=== PATIENT | female | born 1950 | race American Indian/Alaskan Native ===

== ENCOUNTER 2024-10-01 15:11 | Outpatient (RCR) | payer MEDICARE, MEDICAID, SELFPAY ==
--- NOTE | 2024-10-13 20:41 | CTCFLWUP_ITS ---
Patient: MARY ELLEN HARRIS : 1950 Page 2 of 2 FOLLOW UP NOTE DATE OF SERVICE: 10/01/2024 NAME: MARY ELLEN HARRIS ACCOUNT: [id number] : 1950 AGE: 74 REASON FOR VISIT: Follow-up on leiomyosarcoma INTERVAL HISTORY: Patient is 74-year-old woman on peritoneal dialysis for her renal failure. Patient was having abdomi nal discomfort in February 2024 and had ultrasound initially which was negative. Patient had a CT scan do ne and was found to have abdominal mass. Pathology of the abdominal mass reviewed showed leiomyosarc jose with the tumor cells positive for desmin and smooth muscle actin but negative for ER/WI?100. The mass measured 12.6 x 16.7 x 17.8 cm. Weekly hypermetabolic soft tissue mass in the upper anterior a bdomen also non-hypermetabolic 18 mm pulmonary nodules in the right upper lobe. Patient has abdomina l pain for which she takes half a tablet of tramadol as needed. 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 acetaminophen - 325 mg 1 tab Daily 2. furosemide - 20 mg 1 tab Daily 3. insulin aspart U-100 - 100 unit/mL 5 Units Twice a Day 4. insulin glargine - 100 unit/mL 10 Units As directed 5. lisinopril - 20 mg Twice a Day 6. metoprolol succinate - 100 mg Daily 7. pantoprazole - 20 mg Daily 8. Renal-Lauro - 0.8 mg 1 tab Daily 9. simvastatin - 20 mg Daily 10. sodium bicarbonate - 10 mg Twice a Day 11. traMADol - 50 mg 1 tab As directed?[facility] Meds? Medications Last Reconciled by Lin Pemberton MA on 10/01/2024 ALLERGIES: CODEINE PHOSPHATE REVIEW OF SYSTEMS: A complete 14-point review of systems was performed and is negative except as noted in interval histo ry. PHYSICAL EXAMINATION: VITAL SIGNS: Temperature?98.9, B/P?108/74, Oxygen?Saturation?96% PAIN: 2 - Mild pain ECOG Performance Status: 0 - Asymptomatic and fully active GENERAL APPEARANCE: Appears well, in no apparent distress, appropriately interactive. HEENT: Normocephalic, no temporal wasting, normal conjunctiva, no scleral icterus, normal hearing, li ps without lesions, neck normal range of motion. CARDIOVASCULAR: Not assessed. PULMONARY: Normal respiratory effort, no respiratory distress or use of accessory muscles, speaking i n full sentences, no tachypnea. EXTREMITIES: No pedal edema or cyanosis. SKIN: Normal skin appearance. NEUROLOGIC: Alert and ORIENTED x4. PSHYCHIATRIC: Appropriate affect, mood normal, behavior normal, intact thought and speech. Abdominal examination revealed slightly decreased size mass and is little softer than the last examin ation nontender LABORATORY DATA: I have personally reviewed and interpreted each of the patient?s relevant lab tests, abnormal finding s are below: Date 09/04/24 ??WHITE?BLOOD?COUNT?(Thou/mm3) 7.9 ??RED?BLOOD?COUNT?(Miln/mm3) 3.73?L ??HEMOGLOBIN?(gm/dl) 12.1 ??HEMATOCRIT?(%) 37.2 ??PLATELET?COUNT?(Thou/mm3) 414 ??NEUTROPHILS?%,?AUTO?(%) 73 ??LYMPH?%,?AUTO?(%) 17 ??NEUTROPHILS,?AUTO?(Thou/mm3) 5.8 IMPRESSION/PLAN: Locally advanced leiomyosarcoma of abdominal cavity Patient was seen at [facility] and recommended to start lurbinectedin with a 20% dose reduction with a dose of 1.2 mg/m? as adjuvant therapy Unfortunately we were not able to help Ms. Harris by giving chemotherapy as we did not had resour radhames Patient received echocardiogram here and had a good ejection fraction Patient so far has received 2 cycles of chemotherapy and doing very well Patient completed her labs CBC CMP reviewed and is good Patient will continue chemotherapy at [facility] and follow-up with me as needed basis Patient's symptoms have improved since starting chemotherapy and mass is also decreased CBC CMP uric acid Patient may be doing the labs at [facility] and we can follow the same Get records RETURN TO CLINIC: I will see her back in the clinic in 2 months. With imaging BILLING AND COMPLIANCE: I reviewed external records from providers outside my specialty as summarized above. I spent a total of 50 minutes on this patient?s care on the day of their visit excluding time spent related to any bi lled procedures. This time includes time spent with the patient as well as time spent documenting in the medical record, reviewing patients records and tests, obtaining history, placing orders, communi cating with other healthcare professionals, counseling the patient, family or caregiver, and/or care coordination for the diagnoses above. Electronically Signed by: Alfred Prince MD T: 8:38 PM CC: PCP: Bernardino Alas Referring: Bernardino Alas This document was completed utilizing speech recognition software. Grammatical errors, random word in sertions, pronoun errors, and incomplete sentences are an occasional consequence of this system due t o software limitations, ambient noise, and hardware issues. Any formal questions or concerns about e content, text or information contained within the body of this dictation should be directly address ed to the provider for clarification.
== END 2024-10-29 23:59 | disposition home or self-care (01) ==
LOC: SCTC 15:11
PROVIDERS: PCP Physician Assistant; Referring Provider Physician Assistant; Visit Provider Internal Medicine Hematology & Oncology
DX: C49.4 Malignant neoplasm of connective and soft tissue of abdomen (principal); R91.1 Solitary pulmonary nodule
CPT/HCPCS: 99212; G0463

== ENCOUNTER 2025-01-08 15:41 | Outpatient (RCR) | payer MEDICARE, MEDICAID, SELFPAY | END 2025-01-27 23:59 | disposition home or self-care (01) | LOC: SCTC 15:41 | PROVIDERS: PCP Physician Assistant; Referring Provider Physician Assistant; Visit Provider Internal Medicine Hematology & Oncology | DX: C49.4 Malignant neoplasm of connective and soft tissue of abdomen (principal) | CPT/HCPCS: 99212; G0463 ==

== ENCOUNTER → 2025-03-13 | Outpatient (CLI) | payer MEDICARE, MEDICAID, SELFPAY ==
--- NOTE | 2025-03-13 14:30 | ECHO_ITS ---
Transthoracic Echo Report Ht (in): 61 Wt (lb): 165 Exam Location: Echo Lab Status: Preadmit Editing Internship: DIA Franklin^^^^ Indications: Procedure Performed: BP: / HR: Technical Quality: Fair MEASUREMENTS (Male / Female) Normal Values 2D ECHO LV Diastolic Diameter PLAX 3.8 cm 4.2 - 5.9 / 3.9 - 5.3 cm LV Systolic Diameter PLAX 2.3 cm IVS Diastolic Thickness 1.0 cm 0.6 - 1.0 / 0.6 - 0.9 cm LVPW Diastolic Thickness 1.0 cm 0.6 - 1.0 / 0.6 - 0.9 cm LV Relative Wall Thickness 0.5 LVOT Diameter 1.7 cm Aortic Root Diameter 2.8 cm LA Systolic Diameter LX 3.4 cm 3.0 - 4.0 / 2.7 - 3.8 cm LA Volume Index 25.2 cm?/m? 16 - 28 cm?/m? DOPPLER AV Peak Velocity 142.5 cm/s AV Peak Gradient 8.1 mmHg AV Mean Gradient 4.0 mmHg AV Velocity Time Integral 28.2 cm LVOT Peak Velocity 98.3 cm/s LVOT Peak Gradient 3.9 mmHg LVOT Velocity Time Integral 18.1 cm AV Area Cont Eq vti 1.5 cm? AV Area Cont Eq pk 1.6 cm? MV Area PHT 3.7 cm? Mitral E Point Velocity 68.0 cm/s Mitral A Point Velocity 100.0 cm/s Mitral E to A Ratio 0.7 LV E' Lateral Velocity 10.5 cm/s Mitral E to LV E' Lateral Ratio 6.5 LV E' Septal Velocity 11.2 cm/s Mitral E to LV E' Septal Ratio 6.1 TR Peak Velocity 266.0 cm/s TR Peak Gradient 28.3 mmHg PV Peak Velocity 112.0 cm/s PV Peak Gradient 5.0 mmHg RVOT Peak Velocity 44.3 cm/s FINDINGS Left Ventricle Normal left ventricular size, wall thickness, systolic function with no obvious regional wall motion abnormalities. There is grade I diastolic dysfunction of the left ventricle (impaired relaxation pattern). The left ventricular ejection fraction is normal, estimated at 60-65%. Right Ventricle The right ventricle is normal in size and systolic function. The estimated right ventricular systolic pressure, 40 mmHg. Left Atrium The left atrium is normal by two-dimensional, color flow and Doppler imaging with no structural abnormalities, no thrombus formation present. Right Atrium The right atrium is normal by two-dimensional imaging, color flow and Doppler imaging with no structural abnormalities, no thrombus formation present. Atrial Septum The interatrial septum appears normal with no evidence of a shunt. Aorta The aorta is normal by two-dimensional, color flow and Doppler interrogation. Mitral Valve Mild thickening of the mitral valve leaflets. Mild mitral regurgitation. Mild mitral annular calcification. Aortic Valve Aortic valve sclerosis. Mild thickening of the aortic valve leaflets. Diffuse calcification of the aortic valve. Tricuspid Valve There is mild tricuspid valve regurgitation. Pulmonic Valve Trivial pulmonic valve regurgitation. Vessels The pulmonary artery appears normal. The inferior vena cava pulmonary and hepatic veins appear normal. Pericardium The pericardium is normal by two-dimensional imaging. There is no significant pericardial effusion. CONCLUSIONS indication: [facility] The transthoracic study is normal by two-dimensional, color flow imaging and Doppler interrogation. Normal left ventricular size and function. Approximate ejection fraction is 65%. RV appears normal with RVSP 40 mmHg. AOV sclerosis no stenosis Trace mitral and trace tricuspid regurgitation Sherrie Alfaro (Electronically Signed) Final Date: 14 Mar 2025 18:49
== END | disposition home or self-care (01) ==
PROVIDERS: PCP Physician Assistant; Referring Provider Internal Medicine Hematology & Oncology; Visit Provider Internal Medicine Hematology & Oncology
DX: I08.1 Rheumatic disorders of both mitral and tricuspid valves (principal); C49.9 Malignant neoplasm of connective and soft tissue, unspecified
CPT/HCPCS: 93306

== ENCOUNTER 2025-05-29 07:54 | Outpatient (RCR) | payer MEDICARE, MEDICAID, SELFPAY ==
[2025-05-19 08:57] LABS: Basophils # (Auto) 0.0 Thou/mm3 (0.0-0.2); Basophils % (Auto) 1 % (0-2.5); Eosinophils # (Auto) 0.1 Thou/mm3 (0.0-0.5); Eosinophils % (Auto) 2 % (0-10); Hematocrit 33.4 % (36.0-46.0); Hemoglobin 11.5 g/dL (12.0-16.0); Immature Granulocytes Auto 0.02 Thou/mm3 (0.00-0.00); Lymphocytes # (Auto) 1.1 Thou/mm3 (1.0-4.8); Lymphocytes % (Auto) 18 % (10-50); Mean Corpuscular HGB Conc 34.4 g/dl (31.0-37.0); Mean Corpuscular Hemoglobin 35.1 pg (25.0-35.0); Mean Corpuscular Volume 102 fL (80-100); Monocytes # (Auto) 0.5 Thou/mm3 (0.0-0.8); Monocytes % (Auto) 8 % (0-12); Neutrophils # (Auto) 4.1 Thou/mm3 (1.8-7.7); Neutrophils % (Auto) 70 % (37-80); Nucleated Red Blood Cell # 0.00 Thou/mm3 (0.00-0.00); Nucleated Red Blood Cell % 0 /100 WBC (0); Platelet Count 302 Thou/mm3 (140-440); RDW Standard Deviation 49.4 fL (36.4-46.3); Red Blood Count 3.28 Miln/mm3 (4.00-5.20); White Blood Count 5.8 Thou/mm3 (3.6-11.0)
[2025-05-19 09:13] LABS: Alanine Aminotransferase 17 U/L (10-49); Albumin, Serum 3.1 gm/dL (3.4-4.8); Albumin/Globulin Ratio 1.6 (1.2-2.2); Alkaline Phosphatase 88 U/L (46-116); Anion Gap 8 (7-16); Aspartate Amino Transferase 21 U/L (0-34); BUN/Creatinine Ratio 8 Ratio (12-20); Bilirubin,Total 0.2 mg/dL (0.3-1.2); Blood Urea Nitrogen 34 mg/dL (9-23); Calcium 9.4 mg/dL (8.3-10.6); Calcium (Corrected) 10.1 mg/dL (8.5-10.1); Carbon Dioxide 24.7 mMol/L (20.0-31.0); Chloride 101 mMol/L (98-107); Creatinine (Component) 4.4 mg/dL (0.6-1.3); Globulin 1.9 gm/dL (2.3-3.5); Glucose 130 mg/dL (74-106); Osmolality,Calculated 277 (275-295); Potassium 4.8 mMol/L (3.4-5.1); Sodium 134 mMol/L (136-145); Total Protein 5.0 gm/dL (5.7-8.2); eGFR 10 See Note
--- NOTE | 2025-05-25 19:31 | CTCFLWUP_ITS ---
Patient: AYLIN HARRIS : 1950 Page 3 of 4 FOLLOW UP NOTE DATE OF SERVICE: 05/19/2025 NAME: AYLIN HARRIS ACCOUNT: [id number] : 1950 AGE: 74 INTERVAL HISTORY: Aylin is a patient with sarcoma who presents for follow-up of her ongoing immunotherapy treatment. She reports experiencing pain, which has been increasing in severity. The pain is localized to her right side and becomes particularly intense when it occurs. Aylin describes the pain as strong and intermittent, stating When it comes, it comes strong. The pain appears to be associated with movement, as she experiences less discomfort when she remains still. Aylin has been taking tramadol for pain management but only uses it when it really, really hurts rather than on a regular schedule. She also reports feeling more tired than usual. Additionally, she mentions experiencing fullness and pain after eating, specifically noting discomfort after consuming a bun. Regarding her cancer treatment, Aylin is currently on a single immunotherapy drug. Her oncologist notes that while the cancer is not growing, it is also not decreasing in size. Aylin expresses some confusion about the effectiveness of her current treatment, mentioning that she was previously told the drug was not responding, but her doctor indicated that the lack of growth suggests some efficacy. Medical History - Sarcoma (ongoing) - Iron deficiency anemia (suspected) Medications and Supplements - Immunotherapy - Single drug regimen - Tramadol 100 mg - Extended release - Taken only when pain is severe - Avelumab - Every 3 weeks or 6 weeks - Half dose Social History - Substance Use: Patient uses cannabis oil for pain management (topical application) - Pain Management: Takes tramadol only when pain is severe; advised to take it regularly - Diet: Sometimes feels full and experiences pain after eating Review of Systems General: Positive for pain, fatigue. Gastrointestinal: Positive for early satiety, pain after eating. Musculoskeletal: Positive for pain associated with movement. ONCOLOGY HISTORY:?[facility] Hx? 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 Patient was having abdominal discomfort in February 2024 and had ultrasound initially which was negative. Patient had a CT scan done and was found to have abdominal mass. Pathology of the abdominal mass reviewed showed leiomyosarcoma with the tumor cells positive for desmin and smooth muscle actin but negative for ER/IN?100. The mass measured 12.6 x 16.7 x 17.8 cm. Weekly hypermetabolic soft tissue mass in the upper anterior abdomen also non-hypermetabolic 18 mm pulmonary nodules in the right upper lobe. Patient has abdominal pain for which she takes half a tablet of tramadol as needed. 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 acetaminophen - 325 mg 1 tab Daily 2. furosemide - 20 mg 1 tab Daily 3. insulin aspart U-100 - 100 unit/mL 5 Units Twice a Day 4. insulin glargine - 100 unit/mL 10 Units As directed 5. lisinopril - 20 mg Twice a Day 6. metoprolol succinate - 100 mg Daily 7. pantoprazole - 20 mg Daily 8. Renal-Lauro - 0.8 mg 1 tab Daily 9. simvastatin - 20 mg Daily 10. sodium bicarbonate - 10 mg Twice a Day 11. traMADol - 100 mg 1 tab As needed?[facility] Meds? Medications Last Reconciled by Madelin Amanda MA on 05/19/2025 ALLERGIES: CODEINE PHOSPHATE REVIEW OF SYSTEMS: A complete 14-point review of systems was performed and is negative except as noted in interval history. PHYSICAL EXAMINATION: VITAL SIGNS: Temperature?99, B/P?145/69, Oxygen?Saturation?99% Weight?170.2?lbs PAIN: 7 - Between severe and very severe pain ECOG Performance Status: 0 - Asymptomatic and fully active GENERAL APPEARANCE: Appears well, in no apparent distress, appropriately interactive. HEENT: Normocephalic, no temporal wasting, normal conjunctiva, no scleral icterus, normal hearing, lips without lesions, neck normal range of motion. CARDIOVASCULAR: Not assessed. PULMONARY: Normal respiratory effort, no respiratory distress or use of accessory muscles, speaking in full sentences, no tachypnea. EXTREMITIES: No pedal edema or cyanosis. SKIN: Normal skin appearance. NEUROLOGIC: Alert and oriented x4. PSHYCHIATRIC: Appropriate affect, mood normal, behavior normal, intact thought and speech. LABORATORY DATA: I have personally reviewed and interpreted each of the patient?s relevant lab tests, abnormal findings are below: Date 09/04/24 05/19/25 ??WHITE?BLOOD?COUNT?(Thou/mm3) 7.9 5.8 ??RED?BLOOD?COUNT?(Miln/mm3) 3.73?L 3.28?L ??HEMOGLOBIN?(gm/dl) 12.1 11.5?L ??HEMATOCRIT?(%) 37.2 33.4?L ??PLATELET?COUNT?(Thou/mm3) 414 302 ??NEUTROPHILS?%,?AUTO?(%) 73 70 ??LYMPH?%,?AUTO?(%) 17 18 ??NEUTROPHILS,?AUTO?(Thou/mm3) 5.8 4.1 ??GLUCOSE,RANDOM?(mg/dL) ? 130?H ??BLOOD?UREA?NITROGEN?(mg/dL) 36?H 34?H ??CREATININE?(mg/dL) ? 4.40?HH ??SODIUM?(mmol/L) ? 134?L ??POTASSIUM?(mmol/L) ? 4.8 ??CHLORIDE?(mmol/L) ? 101 ??CrCl?(CandG)?(ml/min) ? 11.28 ??AST/SGOT?(Unit/L) ? 21 ??ALT/SGPT?(Unit/L) ? 17 ??ALKALINE?PHOSPHATASE?(Unit/L) ? 88 ??BILIRUBIN,?TOTAL?(mg/dL) ? 0.2?L ??PROTEIN?TOTAL?(gm/dl) ? 5.0?L ??ALBUMIN,?SERUM?(gm/dl) ? 3.1?L ??GLOBULIN?(gm/dl) ? 1.9?L ??ALBUMIN/GLOBULIN?RATIO ? 1.6 ??CALCIUM,?SERUM?(mg/dL) ? 9.4 ??CALCIUM?SERUM?(CORRECTED)?(mg/dL) ? 10.1 ASSESSMENT/PLAN:?Wily Prince Assessment/Plan? Locally advanced leiomyosarcoma of abdominal cavity Patient was seen at [facility] and recommended to start lurbinectedin with a 20% dose reduction with a dose of 1.2 mg/m? as adjuvant therapy. Sarcoma progressed and received radiation and now on avelumab Aylin, a patient with sarcoma, presents with worsening pain and fatigue. She is currently on immunotherapy and experiencing stable disease. Sarcoma Assessment: Patient is currently on immunotherapy (avelumab) for sarcoma. The disease is not growing but also not decreasing in size, indicating stable disease. However, the patient is experiencing worsening pain, which may suggest disease progression. The pain is associated with movement and is particularly strong in a specific area (patient indicated right here ). The patient has been inconsistently taking tramadol for pain management. Plan: - Continue avelumab immunotherapy every 2 weeks at standard dose - Adjust treatment schedule: - Initially, follow-up visits every 4 weeks - CT scans every 3 months - Optimize pain management: - Start tramadol 50 mg extended-release twice daily, regardless of pain level - If ineffective after 4 weeks, consider switching to narco 100 mg once or twice daily - Refer to Dr. Lozano (palliative care and radiation oncologist) for pain management - Recommend cannabis oil for topical application to painful area - Order laboratory tests: - B12 level - Iron studies - Complete blood count (to assess for anemia) - Encourage increased fluid intake before treatments - Continue follow-up with [facility] for sarcoma management and potential clinical trials - Schedule treatment education session Nutritional Deficiency Assessment: Patient appears pale compared to the last visit, suggesting possible anemia. There are concerns about nutritional deficiencies due to cancer-related factors such as pain, discomfort, and decreased appetite. The patient reports feeling full and experiencing pain after eating. Plan: - Order laboratory tests: - Iron studies - B12 level - Educate patient on the importance of consistent nutrition despite discomfort - Encourage small, frequent meals if fullness is an issueORDERS: Order # Description [id number] CBC + Comprehensive Metabolic Panel [id number] Lab Appointment [id number] CBC + Comprehensive Metabolic Panel [id number] Lab Appointment [id number] CBC + Comprehensive Metabolic Panel [id number] Lab Appointment [id number] CBC + Comprehensive Metabolic Panel [id number] Lab Appointment [id number] CBC + Comprehensive Metabolic Panel [id number] Lab Appointment [id number] CBC + Comprehensive Metabolic Panel [id number] Lab Appointment [id number] CBC + Comprehensive Metabolic Panel [id number] Lab Appointment [id number] CBC + Comprehensive Metabolic Panel [id number] Lab Appointment [id number] CBC + Comprehensive Metabolic Panel [id number] Lab Appointment [id number] CBC + Comprehensive Metabolic Panel [id number] Lab Appointment RETURN TO CLINIC: I reviewed the diagnosis, prognosis, and recommended treatment/procedure options with the patient (and/or their legal leasing representative), including the potential benefits, risks, side effects and alternative therapies. We also discussed the option of no treatment and the possibility of clinical trial participation, if applicable. All questions were addressed, and they demonstrated understanding. They provided informed consent to proceed with the proposed plan of care. BILLING AND COMPLIANCE: I reviewed external records from providers outside my specialty as summarized above. I spent a total of 50 minutes on this patient?s care on the day of their visit excluding time spent related to any billed procedures. This time includes time spent with the patient as well as time spent documenting in the medical record, reviewing patients records and tests, obtaining history, placing orders, communicating with other healthcare professionals, counseling the patient, family or caregiver, and/or care coordination for the diagnoses above. Electronically Signed by: Alfred Prince MD T: 7:29 PM CC: PCP: Bernardino Alas Referring: Alfred Prince This document was completed utilizing speech recognition software. Grammatical errors, random word insertions, pronoun errors, and incomplete sentences are an occasional consequence of this system due to software limitations, ambient noise, and hardware issues. Any formal questions or concerns about the content, text or information contained within the body of this dictation should be directly addressed to the provider for clarification.
[2025-05-28 13:07] LABS: Basophils # (Auto) 0.0 Thou/mm3 (0.0-0.2); Basophils % (Auto) 1 % (0-2.5); Eosinophils # (Auto) 0.1 Thou/mm3 (0.0-0.5); Eosinophils % (Auto) 2 % (0-10); Hematocrit 34.9 % (36.0-46.0); Hemoglobin 11.5 g/dL (12.0-16.0); Immature Granulocytes Auto 0.03 Thou/mm3 (0.00-0.00); Lymphocytes # (Auto) 0.9 Thou/mm3 (1.0-4.8); Lymphocytes % (Auto) 14 % (10-50); Mean Corpuscular HGB Conc 33.0 g/dl (31.0-37.0); Mean Corpuscular Hemoglobin 34.4 pg (25.0-35.0); Mean Corpuscular Volume 105 fL (80-100); Monocytes # (Auto) 0.6 Thou/mm3 (0.0-0.8); Monocytes % (Auto) 9 % (0-12); Neutrophils # (Auto) 5.1 Thou/mm3 (1.8-7.7); Neutrophils % (Auto) 75 % (37-80); Nucleated Red Blood Cell # 0.00 Thou/mm3 (0.00-0.00); Nucleated Red Blood Cell % 0 /100 WBC (0); Platelet Count 265 Thou/mm3 (140-440); RDW Standard Deviation 49.0 fL (36.4-46.3); Red Blood Count 3.34 Miln/mm3 (4.00-5.20); White Blood Count 6.8 Thou/mm3 (3.6-11.0)
[2025-05-28 13:28] LABS: Ferritin 772 ng/mL (7.3-270.7); Free T3 2.9 pg/mL (2.3-4.2); Iron 36 mcg/dL (50-170); Percent Iron Saturation 21 % (20-55); Total Iron Binding Capacity 166 mcg/dL (250-425); Unsaturated Iron Binding 130 (225-295)
[2025-05-28 13:30] LABS: Alanine Aminotransferase 13 U/L (10-49); Albumin, Serum 2.9 gm/dL (3.4-4.8); Albumin/Globulin Ratio 1.3 (1.2-2.2); Alkaline Phosphatase 73 U/L (46-116); Anion Gap 10 (7-16); Aspartate Amino Transferase 17 U/L (0-34); BUN/Creatinine Ratio 9 Ratio (12-20); Bilirubin,Total < 0.2 mg/dL (0.3-1.2); Blood Urea Nitrogen 37 mg/dL (9-23); Calcium 8.6 mg/dL (8.3-10.6); Calcium (Corrected) 9.5 mg/dL (8.5-10.1); Carbon Dioxide 25.5 mMol/L (20.0-31.0); Chloride 102 mMol/L (98-107); Creatinine (Component) 4.0 mg/dL (0.6-1.3); Folate > 24.00 ng/mL (>5.38); Globulin 2.2 gm/dL (2.3-3.5); Glucose 165 mg/dL (74-106); LDH (Lactate Dehydrogenase) 273 U/L (120-246); Osmolality,Calculated 286 (275-295); Potassium 4.1 mMol/L (3.4-5.1); Sodium 137 mMol/L (136-145); Thyroid Stimulating Hormone 11.45 uIU/mL (0.55-4.78); Total Protein 5.1 gm/dL (5.7-8.2); Vitamin B12 371 pg/mL (211-911); eGFR 11 See Note
[2025-05-29 08:32] LABS: Free T4 (Free Thyroxine) 1.20 ng/dL (0.89-1.76)
== END 2025-05-29 23:59 | disposition home or self-care (01) ==
LOC: SCTC 07:54
PROVIDERS: PCP Physician Assistant; Referring Provider Internal Medicine Hematology & Oncology; Visit Provider Internal Medicine Hematology & Oncology
DX: Z51.12 Encounter for antineoplastic immunotherapy (principal); C49.4 Malignant neoplasm of connective and soft tissue of abdomen; G89.3 Neoplasm related pain (acute) (chronic); E63.9 Nutritional deficiency, unspecified
CPT/HCPCS: 36591; 80053; 82607; 82728; 82746; 83540; 83550; 83615; 84439; 84443; 84481; 85025; 96413; 99212; 99213; A4216; J1642; J7040; J7050; J9299; G0463

== ENCOUNTER → 2025-06-17 | Outpatient (CLI) | payer MEDICARE, MEDICAID, SELFPAY ==
--- NOTE | 2025-06-17 09:30 | ECHO_ITS ---
Transthoracic Echo Report Ht (in): 61 Wt (lb): 163 Exam Location: Echo Lab Status: Preadmit Local Government Legislator: Noel Levine Indications: Procedure Performed: BP: 157 / 91 HR: 93 MEASUREMENTS (Male / Female) Normal Values 2D ECHO LV Diastolic Diameter PLAX 3.0 cm 4.2 - 5.9 / 3.9 - 5.3 cm LV Systolic Diameter PLAX 2.6 cm IVS Diastolic Thickness 0.9 cm 0.6 - 1.0 / 0.6 - 0.9 cm LVPW Diastolic Thickness 1.5 cm 0.6 - 1.0 / 0.6 - 0.9 cm LV Relative Wall Thickness 0.8 LVOT Diameter 2.1 cm LA Volume Index 33.8 cm?/m? 16 - 28 cm?/m? Ascending Aorta Diameter 3.1 cm M-MODE LA Systolic Diameter MM 2.4 cm AV Cusp Separation MM 1.3 cm DOPPLER AV Peak Velocity 139.0 cm/s AV Peak Gradient 7.7 mmHg AV Mean Gradient 4.0 mmHg AV Velocity Time Integral 28.8 cm LVOT Peak Velocity 101.0 cm/s LVOT Peak Gradient 4.1 mmHg LVOT Velocity Time Integral 21.5 cm LVOT Cardiac Index 3821.4 cm?/min?m? AV Area Cont Eq vti 2.6 cm? AV Area Cont Eq pk 2.5 cm? MV Area PHT 4.4 cm? Mitral E Point Velocity 67.9 cm/s Mitral A Point Velocity 105.0 cm/s Mitral E to A Ratio 0.6 LV E' Lateral Velocity 9.5 cm/s Mitral E to LV E' Lateral Ratio 7.2 LV E' Septal Velocity 7.7 cm/s Mitral E to LV E' Septal Ratio 8.8 TR Peak Velocity 216.5 cm/s TR Peak Gradient 18.7 mmHg PV Peak Velocity 83.4 cm/s PV Peak Gradient 2.8 mmHg FINDINGS Left Ventricle Normal left ventricular size, wall thickness, systolic function with no obvious regional wall motion abnormalities. There is grade I diastolic dysfunction of the left ventricle (impaired relaxation pattern). The ejection fraction is visually estimated at 60-65%. Right Ventricle The right ventricle is normal in size and systolic function. The estimated right ventricular systolic pressure, 32 mmHg. Left Atrium The left atrial cavity size is moderately increased. Right Atrium The right atrium is normal by two-dimensional imaging, color flow and Doppler imaging with no structural abnormalities, no thrombus formation present. Atrial Septum The interatrial septum appears normal with no evidence of a shunt. Aorta The aorta is normal by two-dimensional, color flow and Doppler interrogation. Mitral Valve Mild thickening of the mitral valve leaflets. Mild mitral regurgitation. Aortic Valve Evidence of mild thickening of aortic valve leaflets. Diffuse calicification of the aortic valve, sclerotic aortic valve. Tricuspid Valve The tricuspid valve is normal by two-dimensional, color flow and Doppler interrogation. There is mild amounts of tricuspid valve regurgitation. Pulmonic Valve The pulmonic valve is not well visualized. There is trace amounts of pulmonic valve regurgitation. Vessels The pulmonary artery appears normal. The inferior vena cava pulmonary and hepatic veins appear normal. Pericardium The pericardium is normal by two-dimensional imaging. There is a small pericardial effusion. CONCLUSIONS Normal LV size and functioning. Grade I diastolic dysfunction. LV EF 60-65%. Mild MR. Trace TR. RV normal size and functioning, RVSP 32mmHg. RAP 3. AV sclerotic without stenosis, mild calcification of the AV leaflets. Vegetation vs calcification? Mildly dialated LA. Small pericardial effusion. Ambrosio Will (Electronically Signed) Final Date: 17 June 2025 12:27
== END | disposition home or self-care (01) ==
LOC: SDIM 09:06
PROVIDERS: PCP Physician Assistant; Referring Provider Internal Medicine Hematology & Oncology; Visit Provider Internal Medicine Hematology & Oncology
DX: I08.1 Rheumatic disorders of both mitral and tricuspid valves (principal); I31.39 Other pericardial effusion (noninflammatory); I50.30 Unspecified diastolic (congestive) heart failure; C49.9 Malignant neoplasm of connective and soft tissue, unspecified
CPT/HCPCS: 93306

== ENCOUNTER 2025-06-26 07:48 | Outpatient (RCR) | payer MEDICARE, MEDICAID, SELFPAY ==
[2025-06-11 09:56] LABS: Basophils # (Auto) 0.0 Thou/mm3 (0.0-0.2); Basophils % (Auto) 1 % (0-2.5); Eosinophils # (Auto) 0.2 Thou/mm3 (0.0-0.5); Eosinophils % (Auto) 3 % (0-10); Hematocrit 34.9 % (36.0-46.0); Hemoglobin 11.9 g/dL (12.0-16.0); Immature Granulocytes Auto 0.03 Thou/mm3 (0.00-0.00); Lymphocytes # (Auto) 1.0 Thou/mm3 (1.0-4.8); Lymphocytes % (Auto) 19 % (10-50); Mean Corpuscular HGB Conc 34.1 g/dl (31.0-37.0); Mean Corpuscular Hemoglobin 34.4 pg (25.0-35.0); Mean Corpuscular Volume 101 fL (80-100); Monocytes # (Auto) 0.6 Thou/mm3 (0.0-0.8); Monocytes % (Auto) 12 % (0-12); Neutrophils # (Auto) 3.4 Thou/mm3 (1.8-7.7); Neutrophils % (Auto) 65 % (37-80); Nucleated Red Blood Cell # 0.00 Thou/mm3 (0.00-0.00); Nucleated Red Blood Cell % 0 /100 WBC (0); Platelet Count 312 Thou/mm3 (140-440); RDW Standard Deviation 45.6 fL (36.4-46.3); Red Blood Count 3.46 Miln/mm3 (4.00-5.20); White Blood Count 5.2 Thou/mm3 (3.6-11.0)
[2025-06-11 10:07] LABS: Alanine Aminotransferase 12 U/L (10-49); Albumin, Serum 2.9 gm/dL (3.4-4.8); Albumin/Globulin Ratio 1.4 (1.2-2.2); Alkaline Phosphatase 83 U/L (46-116); Anion Gap 11 (7-16); Aspartate Amino Transferase 16 U/L (0-34); BUN/Creatinine Ratio 7 Ratio (12-20); Bilirubin,Total < 0.2 mg/dL (0.3-1.2); Blood Urea Nitrogen 35 mg/dL (9-23); Calcium 9.0 mg/dL (8.3-10.6); Calcium (Corrected) 9.9 mg/dL (8.5-10.1); Carbon Dioxide 24.8 mMol/L (20.0-31.0); Chloride 97 mMol/L (98-107); Creatinine (Component) 4.7 mg/dL (0.6-1.3); Free T4 (Free Thyroxine) 1.21 ng/dL (0.89-1.76); Globulin 2.1 gm/dL (2.3-3.5); Glucose 106 mg/dL (74-106); Osmolality,Calculated 274 (275-295); Potassium 4.2 mMol/L (3.4-5.1); Sodium 133 mMol/L (136-145); Thyroid Stimulating Hormone 10.42 uIU/mL (0.55-4.78); Total Protein 5.0 gm/dL (5.7-8.2); eGFR 9 See Note
[2025-06-25 12:36] LABS: Basophils # (Auto) 0.0 Thou/mm3 (0.0-0.2); Basophils % (Auto) 0 % (0-2.5); Eosinophils # (Auto) 0.0 Thou/mm3 (0.0-0.5); Eosinophils % (Auto) 0 % (0-10); Hematocrit 32.4 % (36.0-46.0); Hemoglobin 11.1 g/dL (12.0-16.0); Immature Granulocytes Auto 0.03 Thou/mm3 (0.00-0.00); Lymphocytes # (Auto) 0.7 Thou/mm3 (1.0-4.8); Lymphocytes % (Auto) 10 % (10-50); Mean Corpuscular HGB Conc 34.3 g/dl (31.0-37.0); Mean Corpuscular Hemoglobin 33.4 pg (25.0-35.0); Mean Corpuscular Volume 98 fL (80-100); Monocytes # (Auto) 0.5 Thou/mm3 (0.0-0.8); Monocytes % (Auto) 7 % (0-12); Neutrophils # (Auto) 5.7 Thou/mm3 (1.8-7.7); Neutrophils % (Auto) 82 % (37-80); Nucleated Red Blood Cell # 0.00 Thou/mm3 (0.00-0.00); Nucleated Red Blood Cell % 0 /100 WBC (0); Platelet Count 254 Thou/mm3 (140-440); RDW Standard Deviation 44.7 fL (36.4-46.3); Red Blood Count 3.32 Miln/mm3 (4.00-5.20); White Blood Count 7.0 Thou/mm3 (3.6-11.0)
[2025-06-25 12:37] LABS: Immature Reticulocyte Fraction 5.5 % (3.0-15.9); Reticulocyte % (Auto) 0.7 % (0.5-1.5); Reticulocyte Absolute Auto 22.1 Biln/L (25.0-75.0); Reticulocyte Hgb Content 39.1 pg (28.0-35.0)
[2025-06-25 12:57] LABS: Free T3 2.4 pg/mL (2.3-4.2)
[2025-06-25 12:59] LABS: Ferritin 1166 ng/mL (7.3-270.7); Iron 69 mcg/dL (50-170); Percent Iron Saturation 52 % (20-55); Total Iron Binding Capacity 131 mcg/dL (250-425); Unsaturated Iron Binding 62 (225-295)
[2025-06-25 13:10] LABS: Alanine Aminotransferase 21 U/L (10-49); Albumin, Serum 2.6 gm/dL (3.4-4.8); Albumin/Globulin Ratio 1.3 (1.2-2.2); Alkaline Phosphatase 99 U/L (46-116); Anion Gap 9 (7-16); Aspartate Amino Transferase 26 U/L (0-34); BUN/Creatinine Ratio 8 Ratio (12-20); Bilirubin,Total 0.2 mg/dL (0.3-1.2); Blood Urea Nitrogen 38 mg/dL (9-23); Calcium 8.7 mg/dL (8.3-10.6); Calcium (Corrected) 9.8 mg/dL (8.5-10.1); Carbon Dioxide 23.0 mMol/L (20.0-31.0); Chloride 102 mMol/L (98-107); Creatinine (Component) 4.8 mg/dL (0.6-1.3); Globulin 2.0 gm/dL (2.3-3.5); Glucose 175 mg/dL (74-106); Osmolality,Calculated 281 (275-295); Potassium 4.1 mMol/L (3.4-5.1); Sodium 134 mMol/L (136-145); Thyroid Stimulating Hormone 4.25 uIU/mL (0.55-4.78); Total Protein 4.6 gm/dL (5.7-8.2); eGFR 9 See Note
[2025-06-25 13:11] LABS: Folate > 24.00 ng/mL (>5.38); Vitamin B12 826 pg/mL (211-911)
--- NOTE | 2025-06-26 00:40 | CTCFLWUP_ITS ---
Patient: AYLIN HARRIS : 1950 Page 3 of 6 FOLLOW UP NOTE DATE OF SERVICE: 06/23/2025 NAME: AYLIN HARRIS ACCOUNT: [id number] : 1950 AGE: 75 INTERVAL HISTORY: Aylin is a patient with sarcoma who presents for follow-up of her ongoing immunotherapy treatment. She reports experiencing pain, which has been increasing in severity. The pain is localized to her right side and becomes particularly intense when it occurs. Aylin describes the pain as strong and intermittent, stating When it comes, it comes strong. The pain appears to be associated with movement, as she experiences less discomfort when she remains still. Aylin has been taking tramadol for pain management but only uses it when it really, really hurts rather than on a regular schedule. She also reports feeling more tired than usual. Additionally, she mentions experiencing fullness and pain after eating, specifically noting discomfort after consuming a bun. Patient endorses that her pain has not gotten any better. Her appetite is poor. And she is losing weight. There has not been any perceived benefit by patient since starting nivolumab. Of note patient was already receiving durvalumab before she came here at [facility] medical History - Sarcoma (ongoing) - Iron deficiency anemia (suspected) Medications and Supplements - Immunotherapy - Single drug regimen - Tramadol 100 mg - Extended release - Taken only when pain is severe - Avelumab - Every 3 weeks or 6 weeks - Half dose Social History - Substance Use: Patient uses cannabis oil for pain management (topical application) - Pain Management: Takes tramadol only when pain is severe; advised to take it regularly - Diet: Sometimes feels full and experiences pain after eating Review of Systems General: Positive for pain, fatigue. Gastrointestinal: Positive for early satiety, pain after eating. Musculoskeletal: Positive for pain associated with movement. ONCOLOGY HISTORY:?[facility] Hx? 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 Patient was having abdominal discomfort in February 2024 and had ultrasound initially which was negative. Patient had a CT scan done and was found to have abdominal mass. Pathology of the abdominal mass reviewed showed leiomyosarcoma with the tumor cells positive for desmin and smooth muscle actin but negative for ER/OK?100. The mass measured 12.6 x 16.7 x 17.8 cm. Weekly hypermetabolic soft tissue mass in the upper anterior abdomen also non-hypermetabolic 18 mm pulmonary nodules in the right upper lobe. Patient has abdominal pain for which she takes half a tablet of tramadol as needed. Patient have nausea and vomiting once in a while but otherwise not losing weight OTHER MEDICAL HISTORY/CONDITIONS: DIABETES HTN HYPERLIPIDEMIA ESRD - ON PERITONEAL DIALYSIS GERD CHICKENPOX MEASLES MUMPS RIGHT ANKLE SURGERY RIGHT CARPEL TUNNEL STEVE TUBAL LIGATION LEFT SHOULDER SURGERY LEFT BUNION SURGERY FAMILY HISTORY: Cancer History - Father - COLON - DX - 70'S Family Cancer History - Denied - Yes SOCIAL HISTORY: Occupational History - RETIRED -[employer] Education Level - Completed High School Exercise Regularly - Yes 2-3 times a week Marital Status - Tobacco Use Note - DENIES ETOH Use Note - DENIES Drug Note - DENIES 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 acetaminophen - 325 mg 1 tab Daily 2. furosemide - 20 mg 1 tab Daily 3. insulin aspart U-100 - 100 unit/mL 5 Units Twice a Day 4. insulin glargine - 100 unit/mL 10 Units As directed 5. levothyroxine - 50 mcg 1 tab Daily 6. lisinopril - 20 mg Twice a Day 7. metoprolol succinate - 100 mg Daily 8. pantoprazole - 20 mg Daily 9. Renal-Lauro - 0.8 mg 1 tab Daily 10. Sancuso - 3.1 mg/24 hour 1 Patch Daily 11. simvastatin - 20 mg Daily 12. sodium bicarbonate - 10 mg Twice a Day 13. traMADol - 100 mg 1 tab As needed?[place] Meds? Medications Last Reconciled by Madelin Baugh MD on 06/23/2025 ALLERGIES: CODEINE PHOSPHATE REVIEW OF SYSTEMS: A complete 14-point review of systems was performed and is negative except as noted in interval history. PHYSICAL EXAMINATION:?[facility] PE? VITAL SIGNS: Temperature?97.6, B/P?166/90, Oxygen?Saturation?98% PAIN: 0 - No pain GENERAL APPEARANCE: Appears well, in no apparent distress, appropriately interactive. HEENT: Normocephalic, no temporal wasting, normal conjunctiva, no scleral icterus, normal hearing, lips without lesions, neck normal range of motion. CARDIOVASCULAR: Not assessed. PULMONARY: Normal respiratory effort, no respiratory distress or use of accessory muscles, speaking in full sentences, no tachypnea. EXTREMITIES: No pedal edema or cyanosis. SKIN: Normal skin appearance. NEUROLOGIC: Alert and oriented x4. PSHYCHIATRIC: Appropriate affect, mood normal, behavior normal, intact thought and speech. LABORATORY DATA: I have personally reviewed and interpreted each of the patient?s relevant lab tests, abnormal findings are below: Date 06/25/25 ??WHITE?BLOOD?COUNT?(Thou/mm3) 7.0 ??RED?BLOOD?COUNT?(Miln/mm3) 3.32?L ??HEMOGLOBIN?(gm/dl) 11.1?L ??HEMATOCRIT?(%) 32.4?L ??PLATELET?COUNT?(Thou/mm3) 254 ??NEUTROPHILS?%,?AUTO?(%) 82?H ??LYMPH?%,?AUTO?(%) 10 ??NEUTROPHILS,?AUTO?(Thou/mm3) 5.7 ??GLUCOSE,RANDOM?(mg/dL) 175?H ??BLOOD?UREA?NITROGEN?(mg/dL) 38?H ??CREATININE?(mg/dL) 4.80?HH ??SODIUM?(mmol/L) 134?L ??POTASSIUM?(mmol/L) 4.1 ??CHLORIDE?(mmol/L) 102 ??CrCl?(CandG)?(ml/min) 9.83 ??AST/SGOT?(Unit/L) 26 ??ALT/SGPT?(Unit/L) 21 ??ALKALINE?PHOSPHATASE?(Unit/L) 99 ??BILIRUBIN,?TOTAL?(mg/dL) 0.2?L ??PROTEIN?TOTAL?(gm/dl) 4.6?L ??ALBUMIN,?SERUM?(gm/dl) 2.6?L ??GLOBULIN?(gm/dl) 2.0?L ??ALBUMIN/GLOBULIN?RATIO 1.3 ??CALCIUM,?SERUM?(mg/dL) 8.7 ??CALCIUM?SERUM?(CORRECTED)?(mg/dL) 9.8 ??RETICULOCYTE?ABSOLUTE?AUTO?(Biln/L) 22.1?L ??TOTAL?IRON?BINDING?CAP?(S*)?(mcg/dL) 131?L ??UNBOUND?IBC?(mcg/dL) 62?L ASSESSMENT/PLAN:?Wily Prince Assessment/Plan? Locally advanced leiomyosarcoma of abdominal cavity Patient was seen at [facility] and recommended to start lurbinectedin with a 20% dose reduction with a dose of 1.2 mg/m? as adjuvant therapy. Sarcoma progressed and received radiation and now on avelumab Aylin, a patient with sarcoma, presents with worsening pain and fatigue. She is currently on immunotherapy and experiencing stable disease. Sarcoma Assessment: Patient is currently on immunotherapy (nivolumab) for sarcoma. The disease is not growing but also not decreasing in size, indicating stable disease. However, the patient is experiencing worsening pain, which may suggest disease progression. The pain is associated with movement and is particularly strong in a specific area (patient indicated right here ). The patient has been inconsistently taking tramadol for pain management. Will change treatment to nivolumab and ipilimumab Discussed side effects of ipilimumab Discussed possibility of rash colitis pneumonitis decrease in vision and patient advised to come to emergency room immediately if develops any signs or symptoms Patient would like to proceed with combination immunotherapy Nutritional Deficiency Assessment: Patient appears pale compared to the last visit, suggesting possible anemia. There are concerns about nutritional deficiencies due to cancer-related factors such as pain, discomfort, and decreased appetite. Ms. Harris reports feeling full and experiencing pain after eating. Plan: Continue close follow-up ORDERS: Order # Description [id number] CBC + Comprehensive Metabolic Panel [id number] Lab Appointment [id number] CBC + Comprehensive Metabolic Panel [id number] Lab Appointment [id number] CBC + Comprehensive Metabolic Panel [id number] Lab Appointment [id number] CBC + Comprehensive Metabolic Panel [id number] Lab Appointment [id number] CBC + Comprehensive Metabolic Panel [id number] Lab Appointment [id number] CBC + Comprehensive Metabolic Panel [id number] Lab Appointment [id number] CBC + Comprehensive Metabolic Panel [id number] Lab Appointment [id number] CBC + Comprehensive Metabolic Panel [id number] Lab Appointment [id number] CBC + Comprehensive Metabolic Panel [id number] Lab Appointment [id number] CBC + Comprehensive Metabolic Panel [id number] Lab Appointment ORDERS: Order # Description [id number] CBC + Comprehensive Metabolic Panel [id number] Lab Appointment [id number] Thyroid Stimulating Hormone + Comprehensive Metabolic Panel + CBC with Auto Diff + Thyroxine, Free [id number] CBC + Comprehensive Metabolic Panel [id number] Lab Appointment [id number] Thyroid Stimulating Hormone + Comprehensive Metabolic Panel + CBC with Auto Diff + Thyroxine, Free [id number] CBC + Comprehensive Metabolic Panel [id number] Lab Appointment [id number] CBC + Comprehensive Metabolic Panel [id number] Lab Appointment [id number] Thyroid Stimulating Hormone + Comprehensive Metabolic Panel + CBC with Auto Diff + Thyroxine, Free [id number] CBC + Comprehensive Metabolic Panel [id number] Lab Appointment [id number] Thyroid Stimulating Hormone + Comprehensive Metabolic Panel + CBC with Auto Diff + Thyroxine, Free [id number] CBC + Comprehensive Metabolic Panel [id number] Lab Appointment [id number] CBC + Comprehensive Metabolic Panel [id number] Lab Appointment [id number] CBC + Comprehensive Metabolic Panel [id number] Lab Appointment [id number] CBC + Comprehensive Metabolic Panel [id number] Lab Appointment [id number] CBC + Comprehensive Metabolic Panel [id number] Lab Appointment RETURN TO CLINIC: I reviewed the diagnosis, prognosis, and recommended treatment/procedure options with the patient (and/or their legal financial representative), including the potential benefits, risks, side effects and alternative therapies. We also discussed the option of no treatment and the possibility of clinical trial participation, if applicable. All questions were addressed, and they demonstrated understanding. They provided informed consent to proceed with the proposed plan of care. BILLING AND COMPLIANCE: I reviewed external records from providers outside my specialty as summarized above. I spent a total of 50 minutes on this patient?s care on the day of their visit excluding time spent related to any billed procedures. This time includes time spent with the patient as well as time spent documenting in the medical record, reviewing patients records and tests, obtaining history, placing orders, communicating with other healthcare professionals, counseling the patient, family or caregiver, and/or care coordination for the diagnoses above. Electronically Signed by: Alfred Prince MD T: 12:38 AM CC: PCP: Bernardino Alas Referring: Bernardino Alas This document was completed utilizing speech recognition software. Grammatical errors, random word insertions, pronoun errors, and incomplete sentences are an occasional consequence of this system due to software limitations, ambient noise, and hardware issues. Any formal questions or concerns about the content, text or information contained within the body of this dictation should be directly addressed to the provider for clarification.
== END 2025-06-29 23:59 | disposition home or self-care (01) ==
LOC: SCTC 07:48
PROVIDERS: PCP Physician Assistant; Referring Provider Physician Assistant; Visit Provider Internal Medicine Hematology & Oncology
DX: Z51.12 Encounter for antineoplastic immunotherapy (principal); C49.4 Malignant neoplasm of connective and soft tissue of abdomen; E63.9 Nutritional deficiency, unspecified
CPT/HCPCS: 36591; 80053; 82607; 82728; 82746; 83540; 83550; 84439; 84443; 84481; 85025; 85046; 96367; 96413; 96417; 99212; 99213; A4216; J1642; J2405; J7040; J7050; J9228; J9299; G0463

== ENCOUNTER → 2025-07-16 | Outpatient (CLI) | payer MEDICARE, MEDICAID, SELFPAY ==
[2025-07-16 09:39] LABS: Basophils # (Auto) 0.0 Thou/mm3 (0.0-0.2); Basophils % (Auto) 1 % (0-2.5); Eosinophils # (Auto) 0.1 Thou/mm3 (0.0-0.5); Eosinophils % (Auto) 1 % (0-10); Hematocrit 35.4 % (36.0-46.0); Hemoglobin 12.1 g/dL (12.0-16.0); Immature Granulocytes Auto 0.03 Thou/mm3 (0.00-0.00); Lymphocytes # (Auto) 1.2 Thou/mm3 (1.0-4.8); Lymphocytes % (Auto) 20 % (10-50); Mean Corpuscular HGB Conc 34.2 g/dl (31.0-37.0); Mean Corpuscular Hemoglobin 34.2 pg (25.0-35.0); Mean Corpuscular Volume 100 fL (80-100); Monocytes # (Auto) 0.5 Thou/mm3 (0.0-0.8); Monocytes % (Auto) 8 % (0-12); Neutrophils # (Auto) 4.0 Thou/mm3 (1.8-7.7); Neutrophils % (Auto) 69 % (37-80); Nucleated Red Blood Cell # 0.00 Thou/mm3 (0.00-0.00); Nucleated Red Blood Cell % 0 /100 WBC (0); Platelet Count 270 Thou/mm3 (140-440); RDW Standard Deviation 49.4 fL (36.4-46.3); Red Blood Count 3.54 Miln/mm3 (4.00-5.20); White Blood Count 5.8 Thou/mm3 (3.6-11.0)
[2025-07-16 10:21] LABS: Alanine Aminotransferase 20 U/L (10-49); Albumin, Serum 2.8 gm/dL (3.4-4.8); Albumin/Globulin Ratio 1.3 (1.2-2.2); Alkaline Phosphatase 83 U/L (46-116); Anion Gap 13 (7-16); Aspartate Amino Transferase 21 U/L (0-34); BUN/Creatinine Ratio 7 Ratio (12-20); Bilirubin,Total 0.2 mg/dL (0.3-1.2); Blood Urea Nitrogen 31 mg/dL (9-23); Calcium 8.6 mg/dL (8.3-10.6); Calcium (Corrected) 9.6 mg/dL (8.5-10.1); Carbon Dioxide 25.5 mMol/L (20.0-31.0); Chloride 100 mMol/L (98-107); Creatinine (Component) 4.3 mg/dL (0.6-1.3); Free T4 (Free Thyroxine) 1.46 ng/dL (0.89-1.76); Globulin 2.2 gm/dL (2.3-3.5); Glucose 144 mg/dL (74-106); Osmolality,Calculated 285 (275-295); Potassium 3.9 mMol/L (3.4-5.1); Sodium 138 mMol/L (136-145); Thyroid Stimulating Hormone 5.02 uIU/mL (0.55-4.78); Total Protein 5.0 gm/dL (5.7-8.2); eGFR 10 See Note
== END | disposition home or self-care (01) ==
LOC: SCTO 08:49
PROVIDERS: PCP Physician Assistant; Referring Provider Internal Medicine Hematology & Oncology; Visit Provider Internal Medicine Hematology & Oncology
DX: C49.4 Malignant neoplasm of connective and soft tissue of abdomen (principal)
CPT/HCPCS: 36415; 80053; 84439; 84443; 85025

== ENCOUNTER 2025-07-17 08:25 | Outpatient (RCR) | payer MEDICARE, MEDICAID, SELFPAY | END 2025-07-29 23:59 | disposition home or self-care (01) | LOC: SCTC 08:25 | PROVIDERS: PCP Physician Assistant; Referring Provider Physician Assistant; Visit Provider Internal Medicine Hematology & Oncology | DX: Z51.11 Encounter for antineoplastic chemotherapy (principal); C49.4 Malignant neoplasm of connective and soft tissue of abdomen; E63.9 Nutritional deficiency, unspecified | CPT/HCPCS: 96367; 96413; 96417; A4216; J1642; J2405; J3490; J7040; J7050; J9228; J9299 ==

== ENCOUNTER → 2025-07-22 | Outpatient (CLI) | payer MEDICARE, MEDICAID, SELFPAY ==
--- NOTE | 2025-07-22 09:30 | XR_ITS ---
EXAMINATION: PET/CT FUSION SKULL TO THIGH EXAM DATE AND TIME: July 22, 2025, 1021 hours, comparison PET/CT scan May 16, 2024, CT abdomen 03/06/2024, CT abdomen April 13, 2024 INDICATIONS: Diagnosis connective and soft tissue cancer, gastric cancer is listed on the PET/CT scan May 16, 2024, 12.2 x 11.5 cm weakly hypermetabolic soft tissue mass in the upper anterior abdomen and 8T millimeter non hypermetabolic pulmonary nodule right lower lobe on PET CT scan May 16, 2024, restaging post treatment CTDI:vol (mGy) : 28 DLP: (mGycm) 428 PROCEDURE: 16.7 mCi FDG was administered intravenously To allow for distribution and uptake of radiotracer, the patient was allowed to rest quietly in a shielded room. Imaging was performed on an integrated 16-slice PET/CT scanner, with scanning from the skull base to the mid thigh. Serum blood glucose at the time of the injection was measured 166 mg/dL. CT scanning was performed without oral or intravenous contrast material. FINDINGS: Head and Neck: There is no jenn hypermetabolism in the neck. The visualized portions of the brain are normal in appearance on CT. Chest: 4 mm pulmonary nodule left upper lobe image 71 5 mm pulmonary nodule 4 mm pulmonary nodule left upper lobe image 76 2 mm pulmonary nodule left midlung image 82 21 mm weakly hypermetabolic pulmonary nodule left lower lobe image 88 7 mm pulmonary nodule lingular segment image 94 5 mm 4 mm pulmonary nodule left lower lobe image 94 4 mm pulmonary nodule lingular segment image 96 12 mm pulmonary nodule left lower lobe image 99 4 mm pulmonary nodule left lower lobe image 102 Numerous metastatic pulmonary nodules in the right lung, the largest in the posterior right upper lobe 13 mm image 78, 6 mm lower lobe image 94, 5 mm right middle lobe image 95, 4 mm right lower lobe image 98 Abdomen and pelvis: Anterior abdomen mass, gastric, hypermetabolic, 17.3 x 15 cm which on this study surrounds the aorta and inferior vena cava Apparent ventriculoperitoneal shunt tube No ascites Musculoskeletal: Marrow uptake is within normal range. IMPRESSION: Marked progression of pulmonary nodular metastatic disease compared with PET CT scan May 16, 2024 Significant enlargement anterior abdomen gastric mass compared with PET CT scan May 16, 2024
== END | disposition home or self-care (01) ==
PROVIDERS: Referring Provider Internal Medicine Hematology & Oncology; Visit Provider Internal Medicine Hematology & Oncology
DX: C78.00 Secondary malignant neoplasm of unspecified lung (principal); C49.9 Malignant neoplasm of connective and soft tissue, unspecified; C49.4 Malignant neoplasm of connective and soft tissue of abdomen
CPT/HCPCS: 78815; A9552

== ENCOUNTER 2025-08-28 13:11 | Outpatient (RCR) | payer MEDICARE, MEDICAID, SELFPAY ==
[2025-08-06 10:55] LABS: Basophils # (Auto) 0.0 Thou/mm3 (0.0-0.2); Basophils % (Auto) 0 % (0-2.5); Eosinophils # (Auto) 0.2 Thou/mm3 (0.0-0.5); Eosinophils % (Auto) 3 % (0-10); Hematocrit 31.6 % (36.0-46.0); Hemoglobin 10.7 g/dL (12.0-16.0); Immature Granulocytes Auto 0.05 Thou/mm3 (0.00-0.00); Lymphocytes # (Auto) 1.3 Thou/mm3 (1.0-4.8); Lymphocytes % (Auto) 21 % (10-50); Mean Corpuscular HGB Conc 33.9 g/dl (31.0-37.0); Mean Corpuscular Hemoglobin 33.9 pg (25.0-35.0); Mean Corpuscular Volume 100 fL (80-100); Monocytes # (Auto) 0.6 Thou/mm3 (0.0-0.8); Monocytes % (Auto) 9 % (0-12); Neutrophils # (Auto) 4.0 Thou/mm3 (1.8-7.7); Neutrophils % (Auto) 66 % (37-80); Nucleated Red Blood Cell # 0.00 Thou/mm3 (0.00-0.00); Nucleated Red Blood Cell % 0 /100 WBC (0); Platelet Count 285 Thou/mm3 (140-440); RDW Standard Deviation 53.0 fL (36.4-46.3); Red Blood Count 3.16 Miln/mm3 (4.00-5.20); White Blood Count 6.0 Thou/mm3 (3.6-11.0)
[2025-08-06 11:08] LABS: Alanine Aminotransferase 21 U/L (10-49); Albumin, Serum 2.9 gm/dL (3.4-4.8); Albumin/Globulin Ratio 1.4 (1.2-2.2); Alkaline Phosphatase 86 U/L (46-116); Anion Gap 10 (7-16); Aspartate Amino Transferase 22 U/L (0-34); BUN/Creatinine Ratio 9 Ratio (12-20); Bilirubin,Total 0.3 mg/dL (0.3-1.2); Blood Urea Nitrogen 38 mg/dL (9-23); Calcium 8.7 mg/dL (8.3-10.6); Calcium (Corrected) 9.6 mg/dL (8.5-10.1); Carbon Dioxide 25.8 mMol/L (20.0-31.0); Chloride 103 mMol/L (98-107); Creatinine (Component) 4.2 mg/dL (0.6-1.3); Free T4 (Free Thyroxine) 1.24 ng/dL (0.89-1.76); Globulin 2.1 gm/dL (2.3-3.5); Glucose 123 mg/dL (74-106); Osmolality,Calculated 287 (275-295); Potassium 4.2 mMol/L (3.4-5.1); Sodium 139 mMol/L (136-145); Thyroid Stimulating Hormone 4.38 uIU/mL (0.55-4.78); Total Protein 5.0 gm/dL (5.7-8.2); eGFR 11 See Note
[2025-08-07 09:06] LABS: Misc Send Out* See Sep Rpt
[2025-08-27 16:15] LABS: Basophils # (Auto) 0.0 Thou/mm3 (0.0-0.2); Basophils % (Auto) 1 % (0-2.5); Eosinophils # (Auto) 0.2 Thou/mm3 (0.0-0.5); Eosinophils % (Auto) 4 % (0-10); Hematocrit 28.4 % (36.0-46.0); Hemoglobin 9.7 g/dL (12.0-16.0); Immature Granulocytes Auto 0.02 Thou/mm3 (0.00-0.00); Lymphocytes # (Auto) 1.2 Thou/mm3 (1.0-4.8); Lymphocytes % (Auto) 24 % (10-50); Mean Corpuscular HGB Conc 34.2 g/dl (31.0-37.0); Mean Corpuscular Hemoglobin 34.5 pg (25.0-35.0); Mean Corpuscular Volume 101 fL (80-100); Monocytes # (Auto) 0.5 Thou/mm3 (0.0-0.8); Monocytes % (Auto) 10 % (0-12); Neutrophils # (Auto) 3.1 Thou/mm3 (1.8-7.7); Neutrophils % (Auto) 61 % (37-80); Nucleated Red Blood Cell # 0.00 Thou/mm3 (0.00-0.00); Nucleated Red Blood Cell % 0 /100 WBC (0); Platelet Count 279 Thou/mm3 (140-440); RDW Standard Deviation 51.9 fL (36.4-46.3); Red Blood Count 2.81 Miln/mm3 (4.00-5.20); White Blood Count 5.0 Thou/mm3 (3.6-11.0)
[2025-08-27 16:26] LABS: Alanine Aminotransferase 19 U/L (10-49); Albumin, Serum 2.5 gm/dL (3.4-4.8); Albumin/Globulin Ratio 1.4 (1.2-2.2); Alkaline Phosphatase 84 U/L (46-116); Anion Gap 13 (7-16); Aspartate Amino Transferase 21 U/L (0-34); BUN/Creatinine Ratio 8 Ratio (12-20); Bilirubin,Total 0.2 mg/dL (0.3-1.2); Blood Urea Nitrogen 39 mg/dL (9-23); Calcium 8.0 mg/dL (8.3-10.6); Calcium (Corrected) 9.2 mg/dL (8.5-10.1); Carbon Dioxide 24.0 mMol/L (20.0-31.0); Chloride 101 mMol/L (98-107); Creatinine (Component) 4.6 mg/dL (0.6-1.3); Free T4 (Free Thyroxine) 1.40 ng/dL (0.89-1.76); Globulin 1.8 gm/dL (2.3-3.5); Glucose 227 mg/dL (74-106); Osmolality,Calculated 292 (275-295); Potassium 3.5 mMol/L (3.4-5.1); Sodium 138 mMol/L (136-145); Thyroid Stimulating Hormone 4.72 uIU/mL (0.55-4.78); Total Protein 4.3 gm/dL (5.7-8.2); eGFR 10 See Note
== END 2025-08-29 23:59 | disposition home or self-care (01) ==
LOC: SCTC 13:11
PROVIDERS: PCP Physician Assistant; Referring Provider Internal Medicine Hematology & Oncology; Visit Provider Internal Medicine Hematology & Oncology
DX: Z51.12 Encounter for antineoplastic immunotherapy (principal); C49.4 Malignant neoplasm of connective and soft tissue of abdomen; G89.3 Neoplasm related pain (acute) (chronic); E63.9 Nutritional deficiency, unspecified
CPT/HCPCS: 36591; 80053; 84439; 84443; 85025; 87449; 96367; 96413; 96417; A4216; J1642; J2405; J3490; J7040; J7050; J9228; J9299

== ENCOUNTER 2025-09-09 06:30 | Emergency (ER) | payer MEDICARE, MEDICAID, SELFPAY ==
[2025-09-09 06:48] VITALS: PULSE 86; RESP 18
--- NOTE | 2025-09-09 06:50 | PD.EDFALL ---
ED Fall Injury RME/HPI General Chief Complaint: Fall Stated Complaint: FALL, RT SHOULDER PAIN Time Seen by Provider: 09/09/25 06:48 Arrival date/time: 09/09/25 06:30 RME / HPI RME / HPI Narrative: Dr. Lanza?s Main ED Evaluation: 75yo female with a history of ESRD, DM, HTN, HLD, sarcoma BIBA from home presents to the ED for a chief complaint of a fall. Patient reports having right shoulder pain after she slipped and fell, landing on her right shoulder. Denies any head strikes or loss of consciousness. Denies any other injuries. Related Data Home Medications ?Medication ?Instructions ?Recorded ?Confirmed glipizide 5 mg tablet 5 mg PO BID ##0 06/22/09 09/05/24 lisinopril 10 mg tablet 20 mg PO BID ##0 06/22/09 09/05/24 simvastatin 20 mg tablet (Zocor) 20 mg PO HS #0 tabs 07/30/17 09/05/24 metoprolol succinate 50 mg 50 mg PO QDAY 04/18/19 09/05/24 tablet,extended release 24 hr vitamin B complex-vitamin C-folic 1 tab PO QDAY 04/18/19 09/05/24 acid 0.8 mg tablet (Katy-Lauro) ergocalciferol (vitamin D2) 1,250 50,000 unit PO QWEEK 08/02/23 09/05/24 mcg (50,000 unit) capsule sodium bicarbonate 650 mg tablet 650 mg PO BID 08/02/23 09/05/24 blood sugar diagnostic (Contour 04/13/24 04/13/24 Test Strips) pantoprazole 20 mg tablet,delayed 20 mg PO QDAY 04/13/24 09/05/24 release tramadol 50 mg tablet 50 mg PO [id number] PRN Pain 04/13/24 09/05/24 furosemide 20 mg tablet 20 mg PO QDAY 09/05/24 09/05/24 insulin aspar prot-insulin aspart 5 unit subcut TID 09/05/24 09/05/24 100 unit/mL (70-30) subcutaneous pen insulin glargine 100 unit/mL (3 10 unit subcut 09/05/24 mL) subcutaneous pen (Lantus Solostar U-100 Insulin) Previous Rx's ?Medication ?Instructions ?Recorded hydrocodone 5 mg-acetaminophen 325 1 tab PO Q6H PRN pain #14 tabs 09/09/ mg tablet Allergies Allergy/AdvReac Type Severity Reaction Status Date / Time codeine AdvReac Severe EXCESSIVLY Verified 04/13/24 10:26 SLEEPY Review of Systems Review of Systems Systems Reviewed: All systems reviewed, normal except as documented Past Medical History Past Medical History NEUROLOGIC: Negative Neurological Disorders, Cerebrovascular Accident or Seizures CARDIAC: Positive Cardiac Disorders, Hypercholesterolemia and Hypertension; Negative Congestive Heart Failure RESPIRATORY: Positive Pneumonia; Negative Chronic Obstructive Pulmonary Disease (COPD) or Asthma GASTROINTESTINAL: Positive Gastrointestinal Disorders and Gastroesophageal Reflux Disease GENITOURINARY: Positive Genitourinary Disorders, Renal Disease and Dialysis (peritoneal 5 nights a week for 8 hrs) MUSCULOSKELETAL: Positive Musculoskeletal Disorders, Carpal Tunnel Syndrome (right hand) and Fractures (bilat ankles) ENDOCRINE: Positive Endocrine Disorders and Diabetes Mellitus Type 2; Negative Diabetes Mellitus Type 1 HEMATOLOGIC: Positive Blood Disorders and Anemia (iron shots one a month); Negative Sickle Cell Disease OTHER HISTORY: Positive Cancer (abdminal mass); Negative Autoimmune Disease, Falls, Blood Transfusions, Blood Transfusion Reaction, Anesthesia Reactions, Chicken Pox, Measles or Mumps Family History FAMILY HISTORY: Positive Family Cardiac Disorders (mom chf); Negative Family Psychiatric Problems, Family Respiratory Disorders, Family Gastrointestinal Problems, Family Cancer, Family Surgery or Family Anesthesia Reaction Surgical History SURGICAL: Positive Open Reduction Internal Fixation (bilat ankles); Negative Cardiac Surgery, Ear Surgery or Abdominal Surgery Social History SMOKING STATUS: Never smoker ED Exam Narrative Physical exam: GENERAL APPEARANCE: alert and oriented x 4, well-developed, well-nourished, no acute distress VITALS: All vitals were reviewed and the pulse ox is % on room air, which is normal according to my interpretation. HEENT: Normocephalic, atraumatic; pupils equal, round, reactive to light; EOMI; mucous membranes pink, moist; oropharynx clear NECK: Supple LUNGS: CTABL; no wheezes, no rales, no rhonchi HEART: Regular rate, regular rhythm; normal S1, S2; no murmurs ABDOMEN: non distended; normal BS; soft, no tenderness, no guarding, no rebound; no masses, no organomegaly, no hernia BACK: no CVA tenderness EXTREMITIES: limited ROM of the right shoulder secondary to pain without any deformity; no edema NEUROLOGIC: awake; alert and oriented x4; cranial nerves II-XII grossly intact; no focal sensory or motor deficits PSYCHIATRIC: appropriate mood and affect SKIN: warm, dry, normal color; no rashes Course Course Course Narrative: 919: I spoke with transfer nurse for the [facility]. Discussed patients PMHx, HPI, ED course, exam findings, labs, and radiology results. States she will present the case to their ortho team. 1000: I spoke with [facility] transfer nurse. Discussed patients PMHx, HPI, ED course, exam findings, labs, and radiology results. States she will present the case to their ortho team. 1010: I spoke with ortho Dr. Nichols at [facility]. Discussed patients PMHx, HPI, ED course, exam findings, and radiology results. Requesting images of XRs. 1018: Dr. Nichols reviewed the images and he recommends reduction with axial traction, repeat imaging, and send new images. The shoulder was successfully reduced and post reduction images sent to Dr. Nichols. States he can follow up with the patient on an outpatient basis. Quality Measures none Orders Category Date Time Status Referral - Social Sciences Instructor Stat Cons 09/09/25 07:56 Active XR humerus RT min 2V Stat Exams 09/09/25 06:50 Completed XR shoulder RT min 2V Stat Exams 09/09/25 06:50 Completed XR shoulder RT min 2V Stat Exams 09/09/25 11:22 Completed CBC Stat Lab 09/09/25 08:56 Completed CMP [Comprehensive Metabolic Panel] Stat Lab 09/09/25 08:56 Completed PT [Prothrombin Time with INR] Stat Lab 09/09/25 08:56 Completed PTT [Partial Thromboplastin Time] Stat Lab 09/09/25 08:56 Completed UA, C/S IF [Urinalysis, C/S if Indicated] Stat Lab 09/09/25 10:05 Completed Urine Culture Stat Lab 09/09/25 10:05 Received HYDROcodone*/APAP 5/325 [Preston 5/325] Med 09/09/25 06:51 Discontinued 1 tab PO X1 ONE HYDROmorphone INJ [Dilaudid Inj] Med 09/09/25 10:23 Discontinued 1 mg IVP X1 ONE HYDROmorphone INJ [Dilaudid Inj] Med 09/09/25 11:37 Discontinued 1 mg IVP X1 ONE Vital Signs Vital signs: Vital Signs Temperature 97.8 F 09/09/25 06:59 Pulse Rate 67 09/09/25 06:59 Respiratory Rate 19 09/09/25 06:59 Blood Pressure 93/41 L 09/09/25 06:59 Pulse Oximetry (%) 98 09/09/25 06:59 Oxygen Delivery Method Room Air 09/09/25 06:59 Pulse ox is 98% on room air which is adequate. PROCEDURES: Orthopedic Fracture Reduction Fracture #1: Time Out Performed: Yes Side: right Fracture Reduction Location: humerus Analgesia: other (Dilaudid total of 2mg ) Technique: other (axial traction ) Post Reduction X-rays Demonstrate: acceptable reduction Post-reduction neuro exam: intact Post-reduction vascular exam: intact Splint Applied: Yes Patient Tolerated Procedure: well Fall MDM Narrative MDM Narrative:: Scribe Attestation: 09/09/25 - Sheri Lo am scribing for and in the presence of Dr. Lanza. Leslie Lo am scribing for and in the presence of Dr. Lanza. Patient data External records reviewed:: [facility] previous records (Per chart review, patient was admitted here on 04/13/24 for abdominal pain.) and EMS form Clinical information provided by:: patient Social determinants that could affect healthcare access:: none Patient has the following chronic illnesses:: ESRD, DM, HTN, HLD, sarcoma How is presenting disease/condition affected by chronic disease/condition?: uneffected by Evaluation data The following diagnostics were reviewed and interpreted by me:: radiology exam(s) Lab and/or radiology exams considered but not ordered:: none Interpretation Summary: [facility] Report Signed Patient: MARY ELLEN HARRIS [facility] Record#: [id number] Birthdate: 1950 Age/Sex: 75 / F Location: [facility] Attending Dr: Ordering Physician: Maria Del Rosario Lanza MD Date of Service: 09/09/25 Procedure(s): XR shoulder RT min 2V Accession Number(s): [id number] cc: Spencer Mary MD; Maria Del Rosario Lanza MD~ Examination: Shoulder, right, 3 views Technique: Shoulder AP internal rotation, AP external rotation, Y view shoulder, 3 views Exam date and time : September 09, 2025, 0706 hours INDICATIONS: Patient fell today with shoulder pain FINDINGS: Acute fracture humeral neck, humeral shaft displaced medially 1 shaft width No shoulder dislocation The films are underpenetrated Right internal jugular Port-A-Cath tip satisfactory position at least mild enlargement left ventricle with vascular congestion IMPRESSION: Acute displaced fracture humeral neck Dictated By: Spencer Mary MD Signed By: <Electronically signed by Spencer Mary MD in OV> 09/09/25 0747 [facility] Report Signed Patient: MARY ELLEN HARRIS [facility]. Record#: [id number] Birthdate: 1950 Age/Sex: 75 / F Location: [facility] Attending Dr: Ordering Physician: Maria Del Rosario Lanza MD Date of Service: 09/09/25 Procedure(s): XR humerus RT min 2V Accession Number(s): [id number] cc: Spencer Mary MD; Maria Del Rosario Lanza MD~ Examination: Humerus 2 views right Technique: Humerus, AP lateral 2 views Date and time of exam: September 09, 2025, 0706 hours INDICATIONS: Patient fell today with injury to the arm, arm pain FINDINGS: Acute fracture humeral neck Humeral shaft is displaced upward and medially at least 1 shaft width No definite shoulder dislocation Shaft of the humerus intact IMPRESSION: Acute displaced fracture humeral neck Dictated By: Spencer Mary MD Signed By: <Electronically signed by Spencer Mary MD in OV> 09/09/25 0748 Medications / Prescriptions Medications or Prescriptions considered but not ordered:: none Medication administrations:: Medication Administration History Discontinued Medications Hydrocodone Bitart/Acetaminophen (Hydrocodone/Apap 5/325 Tablet) 1 tab PO X1 ONE Stop: 09/09/25 06:52 Last Admin: 09/09/25 07:03 Dose: 1 tab Documented By: SM Hydromorphone HCl (Hydromorphone Inj 2 Mg/Ml Vial) 1 mg IVP X1 ONE Stop: 09/09/25 10:24 Last Admin: 09/09/25 11:12 Dose: 1 mg Documented By: VL Hydromorphone HCl (Hydromorphone Inj 2 Mg/Ml Vial) 1 mg IVP X1 ONE Stop: 09/09/25 11:38 Last Admin: 09/09/25 11:41 Dose: 1 mg Documented By: LEI See above Consultations Consultation(s) initiated? (list below): Yes Consultation #1 (Physician, Specialty, Details): See course Diagnosis Fall Differential Diagnosis: syncope, dislocation of shoulder region and other (fracture) Most likely diagnosis given after review of the tests above:: Fracture of proximal end of right humerus Admission Indicated Admission indicated?: indicated Admission Request Was there a request for admission?: No Disposition Plan Disposition Plan: Discharge Discharge Attestation Discharge Attestation: The patient and all family members were given an opportunity to ask questions and understood the discharge instructions. Discharge instructions specifically effects, indications for sooner follow up or return to the emergency department, and the expected course of current diagnosis. Patient condition: Stable Discharge Plan Plan Patient Disposition: HOME (Self Care) Prescriptions/Referrals Prescriptions/Med Rec: New hydrocodone-acetaminophen 5-325 mg tablet 1 tab PO Q6H MDD 9 PRN (Reason: pain) Qty: 14 0RF No Action lisinopril 10 MG tablet 20 mg PO BID Qty: 0 glipizide 5 MG tablet 5 mg PO BID Qty: 0 simvastatin [Zocor] 20 MG tablet 20 mg PO HS Qty: 0 metoprolol succinate 50 mg Tablet Extended Release 24 Hr 50 mg PO QDAY Katy-Lauro 0.8 mg Tablet 1 tab PO QDAY (DME) Contour Test Strips Strip Patient Comments: CHECK BLOOD SUGAR TWICE DAILY tramadol 50 mg tablet 50 mg PO [id number] PRN (Reason: Pain) Patient Comments: TAKE 1 TABLET BY MOUTH EVERY 6 HOURS NEEDED pantoprazole 20 mg tablet,delayed release (DR/EC) 20 mg PO QDAY Patient Comments: TAKE 1 TABLET BY MOUTH EVERY DAY furosemide 20 mg Tablet 20 mg PO QDAY insulin asp prt-insulin aspart 100 unit/mL (70-30) Insulin Pen 5 unit SUBCUT TID insulin glargine [Lantus Solostar U-100 Insulin] 100 unit/mL (3 mL) Insulin Pen 10 unit SUBCUT ergocalciferol (vitamin D2) 1,250 mcg (50,000 unit) capsule 50,000 unit PO QWEEK Patient Comments: TAKE 1 CAPSULE BY MOUTH EVERY WEEK sodium bicarbonate 650 mg tablet 650 mg PO BID Patient Comments: TAKE 1 TABLET BY MOUTH TWICE DAILY Referrals: Radha Nichols MD [Referring Provider] Bernardino Alas PA-C [Primary Care Provider] - In 1 week Problem List Clinical Impression: Fracture of proximal end of right humerus Patient/Caregiver Discharge Instructions Education Materials: Understanding a Humerus Fracture, ED Fracture, Upper Extremity Additional Instructions: Follow up with your doctor for referral to orthopedics Print Language: Faroese Stand Alone Forms: [facility] Award Info., Patient Portal Info Letter
[2025-09-09 06:59] VITALS: BP 93/41; PULSE 67; RESP 19; TEMP 36.6; O2SAT 98; BMI 30.2
[2025-09-09] MEDS: HYDROcodone/APAP 5/325 TABLET 1 TAB PO (07:03)
[2025-09-09 08:54] VITALS: BP 145/66; PULSE 71; RESP 19; O2SAT 100
[2025-09-09 09:06] LABS: Basophils # (Auto) 0.0 Thou/mm3 (0.0-0.2); Basophils % (Auto) 0 % (0-2.5); Eosinophils # (Auto) 0.1 Thou/mm3 (0.0-0.5); Eosinophils % (Auto) 1 % (0-10); Hematocrit 26.0 % (36.0-46.0); Hemoglobin 8.8 g/dL (12.0-16.0); Immature Granulocytes Auto 0.09 Thou/mm3 (0.00-0.00); Lymphocytes # (Auto) 1.1 Thou/mm3 (1.0-4.8); Lymphocytes % (Auto) 10 % (10-50); Mean Corpuscular HGB Conc 33.8 g/dl (31.0-37.0); Mean Corpuscular Hemoglobin 35.9 pg (25.0-35.0); Mean Corpuscular Volume 106 fL (80-100); Monocytes # (Auto) 0.8 Thou/mm3 (0.0-0.8); Monocytes % (Auto) 7 % (0-12); Neutrophils # (Auto) 8.9 Thou/mm3 (1.8-7.7); Neutrophils % (Auto) 81 % (37-80); Nucleated Red Blood Cell # 0.00 Thou/mm3 (0.00-0.00); Nucleated Red Blood Cell % 0 /100 WBC (0); Platelet Count 249 Thou/mm3 (140-440); RDW Standard Deviation 51.0 fL (36.4-46.3); Red Blood Count 2.45 Miln/mm3 (4.00-5.20); White Blood Count 11.0 Thou/mm3 (3.6-11.0)
--- NOTE | 2025-09-09 09:08 | PC.CC ---
Addendum entered by Juanito Bryson RN 09/09/25 12:53: 1249: called and spoke to Elizabeth w/ [facility] to cancel transfer request. 1249: spoke to Dr. Lanza, she stated she is discharging the patient home. She stated the reduction was successful and to cancel transfer request. Addendum entered by Juanito Bryson RN 09/09/25 10:34: 1026: spoke to Kory with [facility] to cancel transfer request. 1025: spoke to Rikki with [facility] to cancel transfer request 1023: Spoke to Dr. Lanza, she confirmed the POC. She stated to cancel transfer request w/ [facility] and [facility]. She will keep me updated with POC w/ Dr. Nichols. 1022: Elizabeth called back, she informed that Dr Nichols rec a reduction and xray post reduction and will review the xray. she stated she will call me back when a determination is made. 1008: Elizabeth w/ [facility] called, conference call between Dr. Lanza and Dr. Nichols initiated. 0959: Conference call initiated between Kory w/ [facility] and Dr. Lanza. Kory will present to ortho and call back 0953: initiated transfer request with [facility]. Clinicals sent Addendum entered by Juanito Bryson RN 09/09/25 09:45: 0942: called [facility] to f/u on transfer request. Spoke to Letty, she stated that she just reached out to the ortho and is waiting for a response. She will call me back when she hears from the ortho oncall 0941: called [facility] to f/u on transfer request, received recording. Addendum entered by Juanito Bryson RN 09/09/25 09:11: 0844: called [facility], initiated transfer request with R[facility]ki. He will have a nurse review the clinicals and call back. 0842: Called [facility], spoke to Elizabeth. She stated she will review clinicals when she receives them and call back. 0838: spoke to Dr. Lanza regarding labs, she stated she will order. Original Note: received order for transfer for ortho for displaced right humeral fracture. [facility].
[2025-09-09 09:29] LABS: Alanine Aminotransferase 22 U/L (10-49); Albumin, Serum 2.5 gm/dL (3.4-4.8); Albumin/Globulin Ratio 1.6 (1.2-2.2); Alkaline Phosphatase 81 U/L (46-116); Anion Gap 9 (7-16); Aspartate Amino Transferase 30 U/L (0-34); BUN/Creatinine Ratio 14 Ratio (12-20); Bilirubin,Total 0.2 mg/dL (0.3-1.2); Blood Urea Nitrogen 67 mg/dL (9-23); Calcium 7.6 mg/dL (8.3-10.6); Calcium (Corrected) 8.8 mg/dL (8.5-10.1); Carbon Dioxide 25.9 mMol/L (20.0-31.0); Chloride 102 mMol/L (98-107); Creatinine (Component) 4.9 mg/dL (0.6-1.3); Estimated Creatinine Clearance 9.3 mL/min (>60); Globulin 1.6 gm/dL (2.3-3.5); Glucose 170 mg/dL (74-106); Osmolality,Calculated 297 (275-295); Potassium 4.3 mMol/L (3.4-5.1); Sodium 137 mMol/L (136-145); Total Protein 4.1 gm/dL (5.7-8.2); eGFR 9 See Note
[2025-09-09 09:30] LABS: INR 0.9 (0.9-1.3); Partial Thromboplastin Time 27.4 Seconds (22.0-36.0); Prothrombin Time 10.1 Seconds (9.0-12.2)
[2025-09-09 10:13] LABS: Collection Type, Urine Clean Catch
[2025-09-09 10:24] LABS: Bacteria,Urine Rare; Bilirubin,Urine Negative (Negative); Blood,Urine Trace (Negative); Color,Urine Yellow (Lt Yel-Yel); Glucose, Urine Negative (Negative); Ketones,Urine Negative (Negative); Leukocyte Esterase,Urine Positive (Negative); Nitrite,Urine Negative (Negative); PH,Urine 7.5 (5.0-7.0); Protein,Urine 2+ (Neg - Trace); RBC,Urine 2 /hpf (0-3); Specific Gravity,Urine 1.015 (1.001-1.035); Squamous Epithelial Cell,Urine 1 /hpf (0-5); Urobilinogen,Urine OVER mg/dL (0.0-1.0); WBC,Urine 328 /hpf (0-5)
[2025-09-09 10:30] LABS: Clarity,Urine Turbid (Clear/Hazy); Culture Indicated,Urine Yes
[2025-09-09] MEDS: HYDROmorphone INJ 2 MG/ML VIAL 1 MG IVP ×2 (11:12→11:41)
--- NOTE | 2025-09-09 11:22 | XR_ITS ---
EXAMINATION: AP right shoulder single view TECHNIQUE: Portable AP right shoulder single view Date and time: September 09 2025, 1120 hours, comparison September 09, 2025 0709 hours INDICATIONS: Acute displaced fracture proximal humerus FINDINGS: Marked improvement in alignment comminuted fracture proximal humerus through the humeral neck Possible fracture through the greater tuberosity humeral head No shoulder dislocation IMPRESSION: Marked improvement in alignment comminuted fracture proximal humerus
[2025-09-09 12:05] VITALS: BP 99/58; PULSE 70; RESP 19; O2SAT 96
[2025-09-09 12:43] VITALS: BP 109/76; PULSE 72; RESP 18; TEMP 37; O2SAT 98
== END 2025-09-09 12:44 | disposition home or self-care (01) ==
PROVIDERS: Emergency Provider Emergency Medicine; PCP Physician Assistant
DX: S42.211A Unspecified displaced fracture of surgical neck of right humerus, initial encounter for closed fracture (principal); W01.0XXA Fall on same level from slipping, tripping and stumbling without subsequent striking against object, initial encounter; E11.22 Type 2 diabetes mellitus with diabetic chronic kidney disease; I12.0 Hypertensive chronic kidney disease with stage 5 chronic kidney disease or end stage renal disease; N18.6 End stage renal disease; E78.5 Hyperlipidemia, unspecified
CPT/HCPCS: 23605; 36415; 73030; 73060; 80053; 81001; 84439; 84443; 85025; 85610; 85730; 86304; 87077; 87086; 87186; 96374; 99283; J1171; A9270

== ENCOUNTER 2025-09-19 07:52 | Emergency (ER) | payer MEDICARE, MEDICAID, SELFPAY ==
[2025-09-19] VITALS (10 sets, daily range): BP systolic 102–192; BP diastolic 61–100; PULSE 94–125; RESP 16–19; TEMP 36.4–37.2; O2SAT 96–100; BMI 30.2
--- NOTE | 2025-09-19 08:40 | XR_ITS ---
Examination: CTA abdomen pelvis with intravenous contrast 2-D reconstructions 3-D reconstructions, vascular Date and time of exam: September 19, 2025, 1430 hours INDICATIONS: Diagnosis upper gastrointestinal bleeding this week CTDI: vol (mGy) 25.3 DLP: (mGycm) 621 Technique: Multiple axial sections of the abdomen and pelvis have been obtained. 2-D sagittal and coronal reconstructions. 3-D angiographic renderings, 3-D volume renderings, 3D post processing, vascular maximum intensity projections obtained. Contrast administered is 100 cc Isovue-370. Low dose protocols were performed. One or more of the following dose reduction techniques were used; automated exposure control, adjustment of the mA and/or KV according to patient size, use of iterative reconstruction technique. Findings: Multiple pulmonary nodules, please see the PET CT scan report 07/22/2025, no definite change in size of the visualized nodules Left breast edema Liver splenic detail obscured by patient motion, 10 mm enhancing focus lower lateral right lobe of the liver Large gastric mass again depicted, approximately 11 x 17 cm with irregular areas of contrast extravasation This mass surrounds the aorta and inferior vena cava There is possible contrast extravasation in the right colon in addition Ascites Ventricular peritoneal shunt tube Severe thickening of the urinary bladder wall No pelvic mass Severe osteopenia IMPRESSION: Multiple pulmonary nodules again depicted, please see the PET CT scan report 07/22/2025 Again noted very large gastric mass with areas of contrast extravasation consistent with bleeding into this mass Findings are also consistent with bleeding in the right, ascending colon Recommend nuclear medicine gastrointestinal bleeding study follow-up
--- NOTE | 2025-09-19 09:19 | PD.EDABDPN ---
ED Abdominal Pain RME/HPI General Chief Complaint: Abdominal Pain Stated complaint: ABDOMINAL PAIN Time seen by provider: 09/19/25 08:02 Arrival date/time: 09/19/25 07:52 RME / HPI RME / HPI narrative: ED MAIN EVALUATION _ DR> MADISON 75-year-old female with a history of abdominal sarcoma (receiving monthly chemotherapy; last dose 2025-09-05), diabetes mellitus, and end-stage renal disease on peritoneal dialysis (6 nights weekly) presented for evaluation of possible hematemesis. She reports nausea and vomiting since 01:00 with 5?6 episodes of bloody emesis and worsening right-sided abdominal pain. Patient denies diarrhea, fever, sick contacts, and anticoagulant use. Related Data Home Medications ?Medication ?Instructions ?Recorded ?Confirmed glipizide 5 mg tablet 5 mg PO BID ##0 06/22/09 09/05/24 lisinopril 10 mg tablet 20 mg PO BID ##0 06/22/09 09/05/24 simvastatin 20 mg tablet (Zocor) 20 mg PO HS #0 tabs 07/30/17 09/05/24 metoprolol succinate 50 mg 50 mg PO QDAY 04/18/19 09/05/24 tablet,extended release 24 hr vitamin B complex-vitamin C-folic 1 tab PO QDAY 04/18/19 09/05/24 acid 0.8 mg tablet (Katy-Lauro) ergocalciferol (vitamin D2) 1,250 50,000 unit PO QWEEK 08/02/23 09/05/24 mcg (50,000 unit) capsule sodium bicarbonate 650 mg tablet 650 mg PO BID 08/02/23 09/05/24 blood sugar diagnostic (Contour 04/13/24 04/13/24 Test Strips) pantoprazole 20 mg tablet,delayed 20 mg PO QDAY 04/13/24 09/05/24 release tramadol 50 mg tablet 50 mg PO [id number] PRN Pain 04/13/24 09/05/24 furosemide 20 mg tablet 20 mg PO QDAY 09/05/24 09/05/24 insulin aspar prot-insulin aspart 5 unit subcut TID 09/05/24 09/05/24 100 unit/mL (70-30) subcutaneous pen insulin glargine 100 unit/mL (3 10 unit subcut 09/05/24 mL) subcutaneous pen (Lantus Solostar U-100 Insulin) Previous Rx's ?Medication ?Instructions ?Recorded hydrocodone 5 mg-acetaminophen 325 1 tab PO Q6H PRN pain #14 tabs 09/09/ mg tablet Allergies Allergy/AdvReac Type Severity Reaction Status Date / Time codeine AdvReac Severe EXCESSIVLY Verified 04/13/24 10:26 SLEEPY Review of Systems Review of Systems Systems Reviewed: All systems reviewed, normal except as documented Past Medical History Past Medical History CARDIAC: Positive Hypercholesterolemia and Hypertension RESPIRATORY: Positive Pneumonia GASTROINTESTINAL: Positive Gastrointestinal Disorders and Gastroesophageal Reflux Disease GENITOURINARY: Positive Genitourinary Disorders, Renal Disease and Dialysis MUSCULOSKELETAL: Positive Musculoskeletal Disorders, Carpal Tunnel Syndrome and Fractures ENDOCRINE: Positive Endocrine Disorders and Diabetes Mellitus Type 2 HEMATOLOGIC: Positive Blood Disorders and Anemia Family History FAMILY HISTORY: Positive Family Cardiac Disorders Surgical History SURGICAL: Positive Open Reduction Internal Fixation Social History SMOKING STATUS: Never smoker Past Medical History Comments PMH COMMENT: - Abdominal sarcoma - Diabetes mellitus - End stage renal disease on peritoneal dialysis ED Exam Narrative Physical exam: General: Chronically ill appearing, overweight, uncomfortable. Eyes: Appear normal with no scleral icterus. HENT: Atraumatic. Moist mucous membranes. Neck: Atraumatic, supple. Cardiac: Regular rate and rhythm with systolic murmur. Respiratory: Lungs clear to auscultation bilaterally. Abdomen: Abdomen soft, tenderness to palpation in upper and lower abdomen and epigastrium; no rebound or guarding. MS: Mild swelling of bilateral lower extremities. Skin: Bruising on extremities, appears old. Neurologic: No altered mental status, speech is fluent. Psychological: Cooperative and participatory with examination. Lines/Tubes/Devices: Peritoneal dialysis catheter present left abdomen, permacath present to right upper chest wall. Course Course Course Narrative: I reviewed labs and CT report, at this time will try to get ahold of GI. 1527h: Called [facility] T[facility], no answer. Left a voicemail. 1538h: I spoke with GI Dr. Tinsley. Discussed patients PMHx, HPI, ED course, exam findings, labs, and radiology results. He recommends transferring the patient to a facility with IR capabilities for embolization. 1545h: Charge nurse made aware of transfer request. 1640h: I spoke with transfer nurse at [facility]. Discussed patients PMHx, HPI, ED course, exam findings, labs, and radiology results. States she will present the case to their team. 1700h: I updated patient with plan to transfer. States she does not want to be transferred and wants to stay here on hospice. 1705h: I spoke with hospitalist team C for admission. Will come evaluate the patient. 1805h: Hospitalist team saw patient. They are requesting hospice for home. Hospice team was consulted and they will come to the ED to evaluate patient. Will likely discharge to home with hospice afterwards. Patient signed out to Dr. Painting pending same. Quality Measures none Orders Category Date Time Status COVID-19 Screening Questionnaire NOW Care 09/19/25 17:[address] Screening NOW Care 09/19/25 08:41 Active Decision to Admit X1 Care 09/19/25 17:07 Active Insert IV STAT Care 09/19/25 08:40 Active NPO STAT Care 09/19/25 08:40 Active Occult blood,Gastric (Nursing) NEEDED Care 09/19/25 12:10 Active Referral - [facility] Electrical Engineer Stat Cons 09/19/25 15:40 Active Referral Hospice Stat Cons 09/19/25 17:[address] angio abdomen pelvis Stat Exams 09/19/25 08:40 Completed CBC Stat Lab 09/19/25 09:00 Completed Comprehensive Metabolic Panel Stat Lab 09/19/25 09:00 Completed Hemoglobin and Hematocrit Stat Lab 09/19/25 16:28 Completed Lipase Stat Lab 09/19/25 09:00 Completed Magnesium Stat Lab 09/19/25 09:00 Completed Path Review Blood Smear Stat Lab 09/19/25 09:00 Completed Urinalysis, C/S if Indicated Stat Lab 09/19/25 12:56 Completed DiphenhydrAMINE INJ [Benadryl Inj] Med 09/19/25 17:38 Discontinued 25 mg IVP X1 ONE Metoclopramide Inj [Reglan Inj] Med 09/19/25 17:38 Discontinued 10 mg IVP X1 ONE Ondansetron Inj [Zofran Inj] Med 09/19/25 17:37 Discontinued 4 mg IVP X1 ONE Pantoprazole Inj [Protonix Inj] Med 09/19/25 08:40 Discontinued 40 mg IVP X1 ONE Prochlorperazine Inj [Compazine Inj] Med 09/19/25 13:39 Discontinued 10 mg IV X1 ONE Ringers Lactated 1000 ml [Lactated Ringers] 1,000 ml Med 09/19/25 17:06 Active IV 999 mls/hr Tranexamic Acid 1,000 mg Ivpb [Tranexamic Acid Ivpb] Med 09/19/25 17:30 Discontinued 1,000 mg in 100 ml IV X1 traMADol HCL [Ultram] Med 09/19/25 17:03 Discontinued 100 mg PO X1 ONE Vital Signs Vital signs: Vital Signs Temperature 99 F 09/19/25 08:01 Pulse Rate 110 H 09/19/25 08:01 Respiratory Rate 18 09/19/25 08:01 Blood Pressure 102/61 09/19/25 08:01 Pulse Oximetry (%) 97 09/19/25 08:01 Oxygen Delivery Method Room Air 09/19/25 08:01 Pulse ox is 97% on room air which is adequate. Abdominal Pain MDM MDM Narrative MDM Narrative:: This is a 75-year-old female with a history of abdominal sarcoma (on monthly chemotherapy, last dose 2 weeks ago), diabetes, and end-stage renal disease on peritoneal dialysis, presenting with 5?6 episodes of hematemesis since 01:00, worsening right-sided abdominal pain, and nausea/vomiting. She denies anticoagulant use, fever, or diarrhea. Exam reveals a chronically ill appearance, soft but tender abdomen (upper/lower quadrants and epigastrium), mild bilateral lower extremity swelling, and old bruising on extremities; peritoneal dialysis catheter is present. Given the high-risk features of active hematemesis, underlying malignancy, and renal failure, there is concern for upper gastrointestinal bleeding, with differential including peptic ulcer disease, gastric cancer, esophageal varices, and Kira-Beltre tear. IV proton pump inhibitor (Protonix) was administered for possible GI bleed. Labs (CBC, CMP, lipase, urinalysis) and CT angiogram of abdomen/pelvis are pending to further evaluate bleeding source and abdominal pain. Disposition will depend on hemodynamic stability, lab results, and imaging findings. Given the patient?s comorbidities and ongoing bleeding, admission is likely required for close monitoring, further management, and possible consultation with gastroenterology. Patient data External records reviewed:: [facility] previous records and EMS form Clinical information provided by:: patient and EMS Social determinants that could affect healthcare access:: none Patient has the following chronic illnesses:: abdominal sarcoma (on monthly chemotherapy, last dose 2 weeks ago), diabetes, and end-stage renal disease on peritoneal dialysis How is presenting disease/condition affected by chronic disease/condition?: exacerbated by Evaluation data The following diagnostics were reviewed and interpreted by me:: lab results and radiology exam(s) Lab and/or radiology exams considered but not ordered:: None Interpretation Summary: Ordering Physician: Ce Shelley MD Date of Service: 09/19/25 Procedure(s): CT angio abdomen pelvis Accession Number(s): [id number] cc: Spencer Mary MD; Ce Shelley MD; Gabo Sue MD~ Examination: CTA abdomen pelvis with intravenous contrast 2-D reconstructions 3-D reconstructions, vascular Date and time of exam: September 19, 2025, 1430 hours INDICATIONS: Diagnosis upper gastrointestinal bleeding this week CTDI: vol (mGy) 25.3 DLP: (mGycm) 621 Technique: Multiple axial sections of the abdomen and pelvis have been obtained. 2-D sagittal and coronal reconstructions. 3-D angiographic renderings, 3-D volume renderings, 3D post processing, vascular maximum intensity projections obtained. Contrast administered is 100 cc Isovue-370. Low dose protocols were performed. One or more of the following dose reduction techniques were used; automated exposure control, adjustment of the mA and/or KV according to patient size, use of iterative reconstruction technique. Findings: Multiple pulmonary nodules, please see the PET CT scan report 07/22/2025, no definite change in size of the visualized nodules Left breast edema Liver splenic detail obscured by patient motion, 10 mm enhancing focus lower lateral right lobe of the liver Large gastric mass again depicted, approximately 11 x 17 cm with irregular areas of contrast extravasation This mass surrounds the aorta and inferior vena cava There is possible contrast extravasation in the right colon in addition Ascites Ventricular peritoneal shunt tube Severe thickening of the urinary bladder wall No pelvic mass Severe osteopenia IMPRESSION: Multiple pulmonary nodules again depicted, please see the PET CT scan report 07/22/2025 Again noted very large gastric mass with areas of contrast extravasation consistent with bleeding into this mass Findings are also consistent with bleeding in the right, ascending colon Recommend nuclear medicine gastrointestinal bleeding study follow-up Dictated By: Spencer Mary MD Signed By: <Electronically signed by Spencer Mary MD in OV> 09/19/25 8855 Medications / Prescriptions Medications or Prescriptions considered but not ordered:: None Medication administrations:: Medication Administration History Lactated Ringer's (Lactated Ringers) 1,000 mls @ 999 mls/hr IV .Q1H1M ONE Stop: 09/19/25 18:06 Discontinued Medications Diphenhydramine HCl (Diphenhydramine Inj 50 Mg/Ml Vial) 25 mg IVP X1 ONE Stop: 09/19/25 17:39 Tranexamic Acid (Tranexamic Acid Ivpb) 1,000 mg in 100 mls @ 400 mls/hr IV X1 ONE Stop: 09/19/25 17:44 Metoclopramide HCl (Metoclopramide Inj 5 Mg/Ml Vial 2 Ml) 10 mg IVP X1 ONE; Protocol Stop: 09/19/25 17:39 Ondansetron HCl (Ondansetron Inj 2 Mg/Ml Inj 2 Ml) 4 mg IVP X1 ONE; Protocol Stop: 09/19/25 17:38 Pantoprazole Sodium (Pantoprazole Inj 40 Mg Vial) 40 mg IVP X1 ONE Stop: 09/19/25 08:41 Last Admin: 09/19/25 08:58 Dose: 40 mg Documented By: EF Prochlorperazine Edisylate (Prochlorperazine Inj 5 Mg/Ml Vial 2 Ml) 10 mg IV X1 ONE; Protocol Stop: 09/19/25 13:40 Last Admin: 09/19/25 13:56 Dose: 10 mg Documented By: EF Tramadol HCl (Tramadol Hcl 50 Mg Tablet) 100 mg PO X1 ONE Stop: 09/19/25 17:04 See above Consultations Consultation(s) initiated? (list below): Yes Consultation #1 (Physician, Specialty, Details): See course Diagnosis Differential diagnosis abdominal pain: abdominal pain Most likely diagnosis given after review of the tests above:: Upper GI bleed, gastric cancer, hospice evaluation Admission Indicated Admission indicated?: indicated Admission Request Was there a request for admission?: Yes Admission Attestation Admission request attestation: Discussed case with [] from Hospitalist service regarding admission. Discussed patients ED course, exam findings, labs, and radiology results. The Hospitalist [agrees,declines] to accept the patient for admission. Disposition Plan Disposition Plan: Admit Critical Care Time Critical Care Time Total Critical Care Time (min.): 45 Attestation: The high probability of a clinically significant, sudden or life threatening deterioration required my full and direct attention, intervention and personal management. The aggregate critical care time was [45] minutes. This time is in addition to time spent performing reported procedures but includes the following: [x] Data Review and interpretation [x] Patient assessment and monitoring of vital signs [x] Documentation [x] Medication orders and management Discharge Plan Prescriptions/Referrals Prescriptions/Med Rec: No Action lisinopril 10 MG tablet 20 mg PO BID Qty: 0 glipizide 5 MG tablet 5 mg PO BID Qty: 0 simvastatin [Zocor] 20 MG tablet 20 mg PO HS Qty: 0 metoprolol succinate 50 mg Tablet Extended Release 24 Hr 50 mg PO QDAY Katy-Lauro 0.8 mg Tablet 1 tab PO QDAY (DME) Contour Test Strips Strip Patient Comments: CHECK BLOOD SUGAR TWICE DAILY tramadol 50 mg tablet 50 mg PO [id number] PRN (Reason: Pain) Patient Comments: TAKE 1 TABLET BY MOUTH EVERY 6 HOURS NEEDED pantoprazole 20 mg tablet,delayed release (DR/EC) 20 mg PO QDAY Patient Comments: TAKE 1 TABLET BY MOUTH EVERY DAY furosemide 20 mg Tablet 20 mg PO QDAY insulin asp prt-insulin aspart 100 unit/mL (70-30) Insulin Pen 5 unit SUBCUT TID insulin glargine [Lantus Solostar U-100 Insulin] 100 unit/mL (3 mL) Insulin Pen 10 unit SUBCUT ergocalciferol (vitamin D2) 1,250 mcg (50,000 unit) capsule 50,000 unit PO QWEEK Patient Comments: TAKE 1 CAPSULE BY MOUTH EVERY WEEK sodium bicarbonate 650 mg tablet 650 mg PO BID Patient Comments: TAKE 1 TABLET BY MOUTH TWICE DAILY hydrocodone-acetaminophen 5-325 mg tablet 1 tab PO Q6H MDD 9 PRN (Reason: pain) Qty: 14 0RF Referrals: Gabo Sue MD [Primary Care Provider] - In 1 week Problem List Clinical Impression: Acute upper gastrointestinal bleeding, Gastric cancer, Encounter for hospice care discussion Patient/Caregiver Discharge Instructions Print Language: Turkish
[2025-09-19 09:20] LABS: Basophils # (Auto) 0.0 Thou/mm3 (0.0-0.2); Basophils % (Auto) 3 % (0-2.5); Eosinophils # (Auto) 0.0 Thou/mm3 (0.0-0.5); Eosinophils % (Auto) 3 % (0-10); Hematocrit 26.5 % (36.0-46.0); Hemoglobin 9.1 g/dL (12.0-16.0); Immature Granulocytes Auto 0.04 Thou/mm3 (0.00-0.00); Lymphocytes # (Auto) 0.1 Thou/mm3 (1.0-4.8); Lymphocytes % (Auto) 42 % (10-50); Mean Corpuscular HGB Conc 34.3 g/dl (31.0-37.0); Mean Corpuscular Hemoglobin 34.5 pg (25.0-35.0); Mean Corpuscular Volume 100 fL (80-100); Monocytes # (Auto) 0.0 Thou/mm3 (0.0-0.8); Monocytes % (Auto) 3 % (0-12); Neutrophils # (Auto) 0.1 Thou/mm3 (1.8-7.7); Neutrophils % (Auto) 37 % (37-80); Nucleated Red Blood Cell # 0.00 Thou/mm3 (0.00-0.00); Nucleated Red Blood Cell % 0 /100 WBC (0); RDW Standard Deviation 48.0 fL (36.4-46.3); Red Blood Count 2.64 Miln/mm3 (4.00-5.20)
[2025-09-19 09:25] LABS: White Blood Count < 0.4 Thou/mm3 (3.6-11.0)
[2025-09-19 09:26] LABS: Platelet Count 61 Thou/mm3 (140-440)
[2025-09-19 09:46] LABS: Alanine Aminotransferase 29 U/L (10-49); Albumin, Serum 2.9 gm/dL (3.4-4.8); Albumin/Globulin Ratio 1.6 (1.2-2.2); Alkaline Phosphatase 118 U/L (46-116); Anion Gap 12 (7-16); Aspartate Amino Transferase 24 U/L (0-34); BUN/Creatinine Ratio 12 Ratio (12-20); Bilirubin,Total 0.3 mg/dL (0.3-1.2); Blood Urea Nitrogen 51 mg/dL (9-23); Calcium 8.2 mg/dL (8.3-10.6); Calcium (Corrected) 9.1 mg/dL (8.5-10.1); Carbon Dioxide 26.5 mMol/L (20.0-31.0); Chloride 96 mMol/L (98-107); Creatinine (Component) 4.4 mg/dL (0.6-1.3); Estimated Creatinine Clearance 10.4 mL/min (>60); Globulin 1.8 gm/dL (2.3-3.5); Glucose 289 mg/dL (74-106); Lipase 18 U/L (12-53); Magnesium 1.3 mg/dL (1.6-2.6); Osmolality,Calculated 292 (275-295); Potassium 3.5 mMol/L (3.4-5.1); Sodium 134 mMol/L (136-145); Total Protein 4.7 gm/dL (5.7-8.2); eGFR 10 See Note
[2025-09-19 12:23] LABS: Slide Review Platelets confirmed
[2025-09-19 12:38] LABS: Path Review Blood Smear Sent to Pathologist
[2025-09-19 13:00] LABS: Collection Type, Urine Clean Catch
[2025-09-19 13:05] LABS: Bilirubin,Urine Negative (Negative); Blood,Urine 1+ (Negative); Color,Urine Yellow (Lt Yel-Yel); Culture Indicated,Urine Not Indicated; Glucose, Urine Negative (Negative); Ketones,Urine Trace (Negative); Leukocyte Esterase,Urine Positive (Negative); Nitrite,Urine Negative (Negative); PH,Urine 7.0 (5.0-7.0); Protein,Urine 3+ (Neg - Trace); RBC,Urine 3 /hpf (0-3); Specific Gravity,Urine 1.014 (1.001-1.035); Squamous Epithelial Cell,Urine < 1 /hpf (0-5); Urobilinogen,Urine 4.0 mg/dL (0.0-1.0); WBC,Urine 9 /hpf (0-5)
[2025-09-19 13:08] LABS: Clarity,Urine Cloudy (Clear/Hazy)
[2025-09-19] MEDS: PROCHLORPERAZINE INJ 5 MG/ML VIAL 2 ML 10 MG IV (13:56)
--- NOTE | 2025-09-19 16:31 | PC.NURSE ---
CALLED [facility] REGARDING TRANSFER AND THEY DO NOT HAVE ONCOLOGY. CALLED [facility] AND SPOKE WITH JULIAN IN THE TRANSFER CENTER, REQUEST IMAGES BE PUSHED AND FAX INFORMATION OVER.
[2025-09-19 16:34] LABS: Hematocrit 30.1 % (36.0-46.0); Hemoglobin 10.4 g/dL (12.0-16.0)
--- NOTE | 2025-09-19 16:36 | PC.NURSE ---
DR. WALLACE ON PHONE TALKING WITH [facility] TRANSFER NURSE
--- NOTE | 2025-09-19 16:40 | PC.NURSE ---
RECEIVED CONFIRMATION THAT FAX WENT THRU TO [facility]
--- NOTE | 2025-09-19 17:05 | PC.NURSE ---
CALLED C THAT PT AND FAMILY WILL PLACE PT ON HOSPICE AND TRANSFER NOT NEEDED
--- NOTE | 2025-09-19 17:52 | PC.NURSE ---
Per Dr. Patton, [facility] patient, she spoke with patient and her .
--- NOTE | 2025-09-19 18:03 | EVENTNT_ITS ---
<Statement entered by Bharti Zambrano MD - 09/30/25 08:31> I reviewed above note and agree with findings and plans. I have also personally examined the patient with medicine team and went over assessment and plan with medical team including general internist and physician leader and resident physician. Documentation for date of: 09/19/25 Event Note Event Note: Internal medicine team was consulted for possible admission for hospice care for this patient. Ms Ochoa is a 75 year old woman with a history of known gastric cancer with large gastric mass who presented to the ED with abdominal pain and nausea found to have active bleeding from the gastric mass on CT angio AP. Hgb 10. she did not receive blood in the ED. VS notable for tachycardia, however not hypotensive. ED contacted GI who recommended transfer for embolization procedure. Patient and decided against further medical interventions. Medicine team was consulted for admission with plan for discharge to hospice. Upon discussion with pt and , both express strong preference to go home from the emergency room now to hospice at home. rather than being admitted and going on hospice after. Spoke with ED Charge Nurse Jeremy, who helped tremendously to coordinate arranging hospice care to be arranged for the patient tonight. Her help was much appreciated. Documents faxed over to hospice organization. Plan for patient to be discharged from the ED per ED provider home to hospice. Plan discussed with my attending Dr. Juan Manuel Kohler MD PGY1
[2025-09-19] MEDS: ONDANSETRON INJ 2 MG/ML INJ 2 ML 4 MG IVP (18:17)
[2025-09-19] MEDS: TRANEXAMIC ACID 1,000 MG IVPB 1,000 MG/100 ML BAG 400 MG IV (18:17)
[2025-09-19] MEDS: RINGERS LACTATED 1000 ML 1,000 ML 999 ML IV (18:17)
[2025-09-19] MEDS: METOCLOPRAMIDE INJ 5 MG/ML VIAL 2 ML 10 MG IVP (18:18)
--- NOTE | 2025-09-19 18:37 | PD.EDADDENDU ---
Emergency Room Addendum Addendum Narrative: 1800: Care assumed from Dr. Shelley (emergency physician). Past medical, surgical, social and family history reviewed. Vitals and home medications reviewed. Results and treatment plan discussed. I will assume the care of the patient at this time and will follow the patient, pending hospice for discharge. The following addendum documentation note is intended to reflect any pending information, findings, or radiology results not included in the patient?s initial chart by the previous shift lv. 20:11 - Kindly asked to F/U on disposition of this unfortunate patient with known gastric CA presenting with signs of active GI bleed, unresponsive to multiple modalities. Patient hemodynamically stable, after consult with family, Hospice has been elected. Patient will be D/C from ED to home and Hospice will then coordinate further activity. Final diagnoses include Acute upper gastrointestinal bleeding, Gastric cancer, and Encounter for hospice care discussion.
--- NOTE | 2025-09-19 18:53 | PC.NURSE ---
gurwinder [phone]
== END 2025-09-19 22:12 | disposition home or self-care (01) ==
PROVIDERS: Emergency Provider Family Medicine; PCP Orthopaedic Surgery Orthopaedic Surgery of the Spine
DX: K92.0 Hematemesis (principal); C16.9 Malignant neoplasm of stomach, unspecified; E11.22 Type 2 diabetes mellitus with diabetic chronic kidney disease; N18.6 End stage renal disease
CPT/HCPCS: 36415; 74174; 80053; 81001; 83690; 83735; 85014; 85018; 85025; 96361; 96374; 96375; 99284; A4649; J0780; J1200; J2405; J2470; J2765; J3490; J7120; Q9967; A9270